=== PATIENT | male | born 1940 | race Caucasian/White ===

== ENCOUNTER → 2017-01-31 | Outpatient (CLI) | payer OTHER ==
[~2017-01-31] MED LIST: ASPI81TA28 PO; CARV6.252 PO; CYAN10004 PO; FLM4 PO; FLUO0.059; FRS/40 PO; LPT40 PO; NTRSLP4 SL; PLV75 PO; POTA10CA28 PO; TIMO0.5S35 OP
[2017-01-31 15:41] LABS: HEMATOCRIT 34.2 % (42-52); MEAN CELL VOLUME 95.8 fL (80-100); MEAN CORPUSCULAR HEMOGLOBIN 33.1 pg (25-34); MEAN CORPUSCULAR HGB CONC 34.5 g/dl (32-36); MEAN PLATELET VOLUME 9.7 fL (7.4-10.4); PLATELET COUNT 235 K/uL (130-400); RED BLOOD COUNT 3.57 M/uL (4.7-6.1); WHITE BLOOD COUNT 4.95 K/uL (4.8-10.8)
[2017-01-31 15:54] LABS: BLOOD UREA NITROGEN 25 mg/dl (7-18); BUN/CREATININE RATIO 21.2 (10-20); CALCIUM 8.9 mg/dl (8.5-10.1); CARBON DIOXIDE 24 mmol/L (21-32); CHLORIDE 108 mmol/L (98-107); GLUCOSE 115 mg/dl (70-99); POTASSIUM 3.6 mmol/L (3.5-5.1); SODIUM 143 mmol/L (136-145)
[2017-01-31 16:37] LABS: BASO ABS # 0.09 K/uL (0-0.2); BASOPHIL % 1.8 % (0-2); COMPLETE YES; LYMPH ABS # 2.19 K/uL (1.2-3.4); LYMPHOCYTE % 44.3 %; NEUTROPHILS % 27.4 %; VARIANT LYM ABS # 1.05 K/uL; VARIANT LYMPHOCYTE % 21.2 %
[2017-02-01 07:02] LABS: ESTIMATED AVERAGE GLUCOSE 143 mg/dl; HA1C FLAG Normal (Normal)
--- NOTE | 2017-02-06 13:00 | CODING QUERY MEDICAL NECESSITY ---
SUPPORTING DIAGNOSIS NEEDED Dr. Hernández, A supporting diagnosis is required for the test/procedure performed on this patient in order for us to be reimbursed by the patient's insurance. Please provide a supporting diagnosis for the following test/procedure listed below next to the test name along with your signature. *If there is no additional diagnosis for this patient that would support the following test/procedure please document that below next to the test/procedure. Test(s)/Procedure(s) that require a supporting diagnosis: * [id number] GLYCATED HEMOGLOBIN DIAGNOSIS: DATE OF SERVICE: 01/31/17 Provider Signature: Date: Thank you Gordon Beckford [facility] Information Management Once completed, please kindly fax back to [phone] For questions please call [phone]
== END | disposition home or self-care (01) ==
LOC: C.LAB1850 14:25
PROVIDERS: ATTEND Internal Medicine
DX: M79.89 Other specified soft tissue disorders (principal); D64.9 Anemia, unspecified; E53.8 Deficiency of other specified B group vitamins; E55.9 Vitamin D deficiency, unspecified; E88.9 Metabolic disorder, unspecified

== ENCOUNTER → 2017-06-16 | Outpatient (CLI) | payer OTHER ==
[2017-06-16 16:34] LABS: BASO % 0.4 %; BASO ABS # 0.02 K/uL (0-0.2); COMPLETE YES; EOS % 2.6 %; HEMATOCRIT 31.6 % (42-52); IG% 0.4 %; LYMPH % 48.7 %; LYMPH ABS # 2.21 K/uL (1.2-3.4); MEAN CELL VOLUME 97.5 fL (80-100); MEAN CORPUSCULAR HEMOGLOBIN 31.5 pg (25-34); MEAN CORPUSCULAR HGB CONC 32.3 g/dl (32-36); MEAN PLATELET VOLUME 9.3 fL (7.4-10.4); MONO % 7.7 %; NEUT % 40.2 %; PLATELET COUNT 296 K/uL (130-400); RED BLOOD COUNT 3.24 M/uL (4.7-6.1); WHITE BLOOD COUNT 4.54 K/uL (4.8-10.8)
[2017-06-16 16:54] LABS: ALT/SGPT 20 U/L (12-78); BLOOD UREA NITROGEN 15 mg/dl (7-18); BUN/CREATININE RATIO 16.1 (10-20); CALCIUM 8.5 mg/dl (8.5-10.1); CARBON DIOXIDE 25 mmol/L (21-32); CHLORIDE 109 mmol/L (98-107); CHOLESTEROL 174 mg/dl (0-200); CREATININE 0.94 mg/dl (0.60-1.40); GLUCOSE 142 mg/dl (70-99); SODIUM 139 mmol/L (136-145)
[2017-06-16 17:04] LABS: ALB/GLOB RATIO 0.7 (0.9-2); ALKALINE PHOSPHATASE 136 U/L (45-117); AST/SGOT 27 U/L (15-37); CHOLESTEROL/HDL RATIO 9.7; HDL CHOLESTEROL 18 mg/dl; LDL CHOLESTEROL CALCULATED 110 mg/dl; TOTAL IRON BINDING CAPACITY 305 mcg/dl (250-450); TRIGLYCERIDES 229 mg/dl (0-150); VERY LOW DENSITY LIPOPROT CALC 46 mg/dl
== END | disposition home or self-care (01) ==
LOC: C.LAB1850 15:34
PROVIDERS: ATTEND Internal Medicine
DX: R06.02 Shortness of breath (principal); E53.8 Deficiency of other specified B group vitamins; D64.9 Anemia, unspecified; I10 Essential (primary) hypertension; E55.9 Vitamin D deficiency, unspecified

== ENCOUNTER 2017-07-28 10:35 | Observation (INO) | payer OTHER ==
[2017-07-26 15:33] LABS: HEMATOCRIT 30.6 % (42-52); MEAN CORPUSCULAR HGB CONC 34.3 g/dl (32-36); MEAN PLATELET VOLUME 9.8 fL (7.4-10.4); PLATELET COUNT 193 K/uL (130-400); RED BLOOD COUNT 3.09 M/uL (4.7-6.1); WHITE BLOOD COUNT 4.38 K/uL (4.8-10.8)
[2017-07-26 15:45] LABS: INR 1.1 (0.9-1.1)
[2017-07-26 15:51] LABS: BLOOD UREA NITROGEN 24 mg/dl (7-18); BUN/CREATININE RATIO 27.1 (10-20); CALCIUM 8.3 mg/dl (8.5-10.1); CARBON DIOXIDE 25 mmol/L (21-32); CHLORIDE 107 mmol/L (98-107); CREATININE 0.87 mg/dl (0.60-1.40); GLUCOSE 97 mg/dl (70-99); POTASSIUM 3.8 mmol/L (3.5-5.1); SODIUM 137 mmol/L (136-145)
[~2017-07-28] VITALS: Ht 172.7 cm; Wt 95.5 kg
[2017-07-28] VITALS (9 sets, daily range): BP systolic 118–146; BP diastolic 61–82; PULSE 60–83; TEMP 36.5–36.8; O2SAT 95–98; Ht 172.7 cm; Wt 95.5 kg
[~2017-07-28 10:35] MED LIST changes: -LPT40 PO; -NTRSLP4 SL; -PLV75 PO
[2017-07-28] MEDS ORDERED: FENTANYL CITRATE INJ 50 MCG/1 ML 2 ML VIAL ONE (11:14)
[2017-07-28] MEDS ORDERED: MIDAZOLAM HCL 1 MG/ML 2ML VIAL ONE (11:14)
[2017-07-28] MEDS ORDERED: HEPARIN SOD (PORCINE) 1000 UNIT/ML 10 ML VIAL ONE ×2 (11:14→12:01)
[2017-07-28] MEDS ORDERED: NiCARDipine HCL INJ 2.5 MG/ML 10 ML AMP ONE (11:14)
[2017-07-28] MEDS ORDERED: NITROGLYCERIN/D5W 100MCG/ML 20ML SYR ONE (11:15)
[2017-07-28] MEDS ORDERED: CLOPIDOGREL BISULFATE 300 MG TAB PO ONE (12:29)
--- NOTE | 2017-07-28 12:44 | History & Physical Bridge Note ---
H&P Re-Evaluation Bridge Note: I have examined the patient, reviewed the History & Physical and in the interval since the performance of the History & Physical I have noted the following changes of clinical significance: No changes noted
--- NOTE | 2017-07-28 12:44 | Procedure Note ---
Pre-Mod Sedation Assessment General Date of Moderate Sedation: Jul 28, 2017. Vital Signs: Vital Signs Past 12 Hours Date Time Temp Pulse Resp B/P (MAP) Pulse Ox O2 Delivery O2 Flow Rate FiO2 07/28/17 12:28 72 16 134/77 (96) 93 Nasal Cannula 07/28/17 10:43 36.5 66 18 96 Room Air Review Cardiovascular: regular rate, rhythm, no edema Abdomen: normal bowel sounds, non tender Lungs: chest non-tender, lungs clear Airway Class: III Pre-Sedation Airway Assessment Oral Cavity: Dentures Able to Visualize Vocal Cords: No Short Thick Neck: No Hx of Sleep Apnea: No Smoking Status: Never Smoker Mallampati Classification: Class III ASA Classification: Class III Procedure Planning Contraindications-for Mod Sed: None Yes Notes The planned sedation has been discussed with the patient and consent obtained. I have identified the patient, determined the appropriateness of sedation and have assessed the patient immediately prior to the procedure. All medicine(s) and interventions are by my order.
[2017-07-28] MEDS ORDERED: ACETAMINOPHEN 325 MG TAB PO PRN (12:45)
[2017-07-28] MEDS ORDERED: ONDANSETRON INJ 2 MG/ML 2 ML VIAL IV PRN (12:45)
[2017-07-28] MEDS ORDERED: SODIUM CHLORIDE 0.9% 1000ML 1,000 ML IV SCH (12:45)
[2017-07-28] MEDS ORDERED: NITROGLYCERIN 0.4 MG SL PER TAB CHARGE SL PRN (12:45)
--- NOTE | 2017-07-28 12:45 | Procedure Note ---
Post-Mod Sedation Assessment General Date of Moderate Sedation Jul 28, 2017. Vital Signs: Vital Signs Past 12 Hours Date Time Temp Pulse Resp B/P (MAP) Pulse Ox O2 Delivery O2 Flow Rate FiO2 07/28/17 12:28 72 16 134/77 (96) 93 Nasal Cannula 07/28/17 10:43 36.5 66 18 96 Room Air Review - Discharge Criteria Vital Signs Stable: Yes Alert/Oriented/Conversant: Yes Returned to Baseline Mental St: Yes Nausea Absent/Minimal: Yes Pain/Discomfort/Absent/Minimal: Yes Normal/Baseline Respirations: Yes Active Bleeding?: No Pt Received D/C Instructions: N/A Prescriptions Given: None Specific Proced. D/C Criteria Distal Pulses Present (Cardiac: Yes Groin site assessed-Card Cath: N/A Voided Prior To Discharge: N/A Discharged Patients Adult Escort/Transportation: Yes
[2017-07-28] MEDS ORDERED: IV FLUIDS COMPLETED PRN (13:30)
[2017-07-28] MEDS: TIMOLOL MALEATE 0.5% OP SOLN 5 ML BTL OP SCH (21:04)
[2017-07-28] MEDS: CARVEDILOL 6.25 MG TAB PO SCH (21:04)
--- NOTE | 2017-07-28 21:45 | Cardiac Catheterization ---
Procedure Note Procedure Date Jul 28, 2017. Pre-Procedure Diagnosis Positive Stress Test AUC Score 7 Post-Procedure Diagnosis Severe CAD Procedure(s) Performed Coronary Angiography, Left Heart Cath, Drug Eluting Stent Cardiothoracic Icu Rn Refugio Counter Molder(s) Leighton Estimated Blood Loss 15 Medication(s) Fentanyl, Heparin, Nicardipine, Versed, Lidocaine 1% Summary of Findings Indication: Positive stress test/Angina Access: 6Fr Right radial artery Catheters: Lequire, multipurpose; JR4 guide Findings: LM - Very long, mild diffuse disease LAD - 50-60% ostial stenosis after small circumflex take-off, mild mid and distal segment disease Circumflex - Small vessel with abnormal take-off after long left main; 95% hazy stenosis in proximal segment; OM1 like branch subtotally occluded. TIMI2 flow in small distal vessel RCA - Large vessel, dominant, 80% long proximal to mid stenosis; luminal irregularities in distal segment, PDA and large PLB. LVEDP - 11 -- PCI -- Antithrombotic therapy: Heparin, Clopidogrel Procedure: RCA cannulated with JR4 guide Prowater wire passed across lesion into distal vessel Proximal to mid RCA lesion predilated with 3.0 compliant balloon Dilated lesion stented with 4.0 x 28 Xience STEFFANIE Stent post-dilated with 5.0 noncompliant balloon IC vasodilators administered for spasm Post procedure IRA 3 flow, stent well expanded with minimal residual stenosis and no apparent cardiac complications. Arterial Closure: TR Band Summary: 1. Severe multi-vessel coronary artery disease - 80% proximal-mid RCA stenosis - 95% proximal small circumflex - 50-60% proximal LAD 2. Normal intracardiac filling pressure 3. Successful PCI of proximal to mid RCA with 4.0 x 28 Xience STEFFANIE (post-dilated to 5.0). Recommendations: To PCU for continued monitoring Loaded with Clopidogrel 600 mg in label coder Continue dual-antiplatelet therapy with ASA/Clopidogrel for 6 months Continue statin, ASCVD risk factor modification Consult cardiac Rehab Circumflex is small vessel, LAD relatively small to moderate sized - plan to medically manage for now. If recurrent symptoms could consier attempted PCI of circumflex +/- FFR of LAD Hemodynamics Rest Ao: -- Final Ao: -- LV: -- Recommendations PCI without planned CABG Specimens None Radiation Exposure (mGy) -- Contrast (mls) -- Fluids (cc crystalloids) -- Drains None Anesthesia Moderate Procedural Complication(s) None Disposition PCU ACC Data Cardiac Status Clinical evaluation leading to the procedure CAD Presntation: Positive Stress Test Anginal Classification: CCS III Heart Failure: No, NYHA Class: CCS I Cardiogenic Shock w/in 24Hrs: No Cardiac Arrest w/in 24Hrs: No Imaging studies past 6 months: Yes Stress studies past 6 months: Yes Stress Echocardiogram: Yes - Positive, Risk/Extent of Ischemia (High) Closure Device Closure Device: Radial Band Recommendations: PCI without planned CABG PCI Indication: + Stress Test Lesion Segment Name: Proximal - mid RCA Culprit Artery: Yes Stenosis Prior to Rx (%): 80% Chronic Total Occlusion: No IVUS: No FFR: No Pre-Procedure IRA Flow: 3 Previously Treated Lesion: No Lesion Complexity: Non-High/Non-C Lesion Length (mm): 25 Thrombus Present: No Bifurcation Lesion: No Guidewire Across Lesion: Yes Guidewire: Stenosis Post-Procedure (%): 0 Post-Procedure IRA Flow: 3 Device(s) Deployed: Yes Intraprocedure Events Significant Dissection: No Perforation: No
[2017-07-28] MEDS ORDERED: NTRSLP4 SL (22:09)
[2017-07-28] MEDS ORDERED: PLV75 PO (22:09)
[2017-07-28] MEDS ORDERED: LPT40 PO (22:09)
--- NOTE | 2017-07-28 22:15 | Discharge Instructions ---
Discharge Instructions Procedure Procedure Date: Jul 28, 2017. Reason for Visit: CAD. Discharge Discharge Date: Jul 28, 2017. Discharge Diagnosis: Coronary artery disease Last Recorded Wt (Kilograms): 97.700 Anesthesia Post Anesthesia Instructions: If you have had General Anesthesia or IV Sedation: * Do not drive today. * Resume driving when surgeon permits. * Do not make important decisions or sign legal documents today. * Call surgeon for: 1. Temperature elevations greater than 101 degrees F. 2. Uncontrollable pain. 3. Excessive bleeding. 4. Persistent nausea and vomiting. 5. Medication intolerance (nausea, vomiting or rash). * For nausea and vomiting use only clear liquids such as: tea, soda, bouillon until nausea subsides, then gradually increase diet as tolerated. * If you have any concerns or questions, call your surgeon's office. If physician is unavailable and it is an emergency, call 911 or go to the nearest emergency room. Instructions Activity Recommendations: limitations as noted below Recommended Home Diet: low sodium Allergies: Coded Allergies: NO KNOWN DRUG ALLERGIES (Verified Allergy, Unknown, none, 05/29/15) Follow Up Additional Instructions: ACTIVITY RECOMMENDATIONS: Excess manipulation of the wrist should be avoided for the next 24-48 hours. * No lifting over 2 pounds (approximately a 1/2 gallon of milk) with the utilized arm for 24 hours. * No strenuous activity such as bowling or tennis for 3 days. * Keep the site of the procedure covered with a bandage for 24 hours. *You may shower the day after the procedure. Do not take a tub bath or submerge the puncture site in water for the next 3 days. *Do not operate any motorized equipment for 3 days. SPECIAL CARE INSTRUCTIONS: The site may be slightly bruised and sore following your procedure. Should any of the following occur, contact the Dr. who performed your procedure. 1. Redness/inflammation, swelling, chills, or fever, or colored drainage at procedure site within 3-7 days after your procedure. 2. Coldness, discoloration, ongoing numbness, severe pain, or swelling. Expect mild tingling of hand and tenderness at the puncture site for up to three days. If this persists beyond three days, or other symptoms develop, notify the Dr. who performed your procedure. BLEEDING: If the procedure site on your wrist begins to bleed, do not panic 1. Place 1 or 2 fingers firmly just slightly above the insertion site to stop the bleeding. You may be able to feel your pulse as you hold pressure. 2. Lift your finger after 5 minutes to see if the bleeding has stopped. 3. Once the bleeding has stopped, gently wipe the wrist area clean with a bandage. * If the bleeding from your wrist does not stop after 10 minutes, or if there is a large amount of bleeding or spurting, call 911 (do not drive yourself to the hospital). SKIN IRRITATION: * You may experience some redness and/or swelling in the area where radiation was administered. If any skin irritation occurs, please contact your family physician. FOLLOW UP VISIT: Keep any scheduled doctor appointments. Follow-up with: Cardiology clinic with Linden Morales in 3 weeks Piper Currie Recommendations: Call your doctor if: * Temperature above 101 degrees * Pain not relieved by pain medicine ordered * There is increased drainage or redness from any incision * You have any unanswered questions or concerns. Your Doctors Instructions noted above were prepared by provider Rohith Huff. Patient Signature Section: Patient Instructions Signature Page Ty Milton Patient (or Guardian) Signature/Date: I have read and understand the instructions given to me by my caregivers. Caregiver/RN/Doctor Signature/Date: The above-named patient and/or guardian has received patient instructions on this date. + Original Patient Signature Page (only) stays with chart. Please make copy for patient.
--- NOTE | 2017-07-28 22:36 | Discharge Summary ---
Discharge Summary Date of Service Jul 28, 2017. Discharge Summary Admission Date: Jul 28, 2017 at 12:43 Discharge Date: Jul 29, 2017 Discharge Disposition: Home Principal Diagnosis: Coronary artery disease Procedures: 1. Coronary angiography/left heart catheterization. 2. PCI proximal to mid RCA with 4.0 x 28 Xience STEFFANIE (postdilated to 5.0) Medication Reconciliation New Medications: Atorvastatin (Atorvastatin Calcium) 40 Mg Tab 1 TABS PO DAILY for 30 Days, #30 TABS 6 Refills Clopidogrel Bisulfate (Clopidogrel) 75 Mg Tab 75 MG PO QAM for 30 Days, #30 TAB 6 Refills Nitroglycerin (Nitrostat) 0.4 Mg/1 Tab Subl 0.4 MG SL UD PRN for Chest Pain for 30 Days, #30 TABS 6 Refills Continued Medications: Aspirin (Aspirin Ec) 81 Mg Tab 81 MG PO DAILY Carvedilol (Coreg) 6.25 Mg Tab 1 TAB PO BID for 90 Days, #180 TAB 1 Refill Cyanocobalamin (Vitamin B-12 1000 Mcg) 1,000 Mcg Tab 1000 MCG PO DAILY, TAB Fluocinonide (Fluocinonide) 0.05 % Gel BID Furosemide (Lasix) 40 Mg Tab 80 MG PO QAM, TAB Potassium Chloride (Micro-K Ext Rel) 10 Meq Capcr 10 MEQ PO BID, CAP Tamsulosin HCl (Tamsulosin HCl) 0.4 Mg Cap 1 CAP PO DAILY Timolol Maleate (Ophth) (Timoptic) 0.5 % Allyson 1 DROPS OP BID for 60 Days, #10 ML 3 Refills Discharge Exam Right radial artery access site with no ecchymosis, hematoma. Distal pulse and sensation intact. General: comfortable, no acute distress HEENT: sclera anicteric, mucous membranes moist Neck: No lymphadenopathy, no thyromegaly Lungs: Clear to auscultation bilaterally Cardiac: Regular rate and rhythm, no murmurs, rubs or gallops. No Jugular venous distension Vascular: Normal carotid upstrokes without bruits, PT/DP pulses bilaterally. Abd: Soft, non-tender, non-distended, +bowel sounds, no hepatosplenomegaly Ext: warm, well perfused, no edema Skin: no rashes Neuro: Cranial nerves grossly intact, remainder of exam non-focal Psych: Alert and oriented x3, appropriate Hospital Course Mr. Milton is a 76-year-old male with a history of longstanding Hypertension, dyslipidemia and more recent progressive exertional dyspnea. He underwent outpatient stress test which revealed new resting LV dysfunction (EF 40%) with positive exercise induced inferior ST depressions and wall motion abnormality. Decision made to proceed with cardiac catheterization. Cardiac catheterization via right radial artery revealed an 80% diffuse stenosis in his proximal to mid RCA. In addition had a 50-60% stenosis in his proximal LAD and a 95% stenosis in a small circumflex vs diagonal supplying circumflex territory. No anomalous or occluded circumflex noted. As LAD/ circumflex were small vessels and RCA fit with stress test findings proceeded with PCI of RCA. 4.0 x 28 Xience STEFFANIE placed to proximal to mid RCA, post- dilated with a 5.0 balloon. Patient tolerated procedure without difficulties. He was loaded with clopidogrel and is to continue on DAPT for at least 6 months. He was admitted to telemetry for observation overnight. He had no chest pain. No arrhythmias on monitoring. On hospital day 2 discharged to home. Total Time Spent: Less than 30 minutes This includes examination of the patient, discharge planning, medication reconciliation, and communication with other providers. Discharge Instructions Please refer to the electronic Patient Visit Report (Discharge Instructions) for additional information. Follow-Up [facility], Cardiology [address] Hernández as Scheduled
[2017-07-29] VITALS: BP 129/70; PULSE 76; TEMP 36.8; O2SAT 96
[2017-07-29 04:00] VITALS: BP 138/69; PULSE 63; TEMP 36.6; O2SAT 96
[2017-07-29 06:47] LABS: MEAN CELL VOLUME 98.6 fL (80-100); MEAN CORPUSCULAR HGB CONC 32.4 g/dl (32-36); MEAN PLATELET VOLUME 9.2 fL (7.4-10.4); PLATELET COUNT 201 K/uL (130-400); RED BLOOD COUNT 2.94 M/uL (4.7-6.1); WHITE BLOOD COUNT 4.35 K/uL (4.8-10.8)
[2017-07-29 07:18] LABS: BUN/CREATININE RATIO 23.1 (10-20); CALCIUM 8.1 mg/dl (8.5-10.1); CREATININE 0.88 mg/dl (0.60-1.40); POTASSIUM 3.8 mmol/L (3.5-5.1)
[2017-07-29 07:25] LABS: COMPLETE YES; EOSINOPHIL % 2.6 %; LYMPH ABS # 1.14 K/uL (1.2-3.4); LYMPHOCYTE % 26.1 %; NEUTROPHILS % 44.4 %; VARIANT LYM ABS # 1.06 K/uL; VARIANT LYMPHOCYTE % 24.3 %
[2017-07-29] MEDS: TIMOLOL MALEATE 0.5% OP SOLN 5 ML BTL OP SCH (07:38)
[2017-07-29] MEDS: CARVEDILOL 6.25 MG TAB PO SCH (07:38)
[2017-07-29 08:00] VITALS: BP 140/69; PULSE 77; TEMP 36.8; O2SAT 94
[2017-07-29] MEDS ORDERED: ASPIRIN 81 MG ECTAB PO SCH (09:00)
[2017-07-29] MEDS ORDERED: CLOPIDOGREL BISULFATE 75 MG TAB PO SCH (09:00)
[2017-07-29] MEDS ORDERED: ATORVASTATIN 40 MG TAB PO SCH (09:00)
[2017-07-29] MEDS ORDERED: TAMSULOSIN HCL 0.4 MG CAP PO SCH (09:00)
[2017-07-29] MEDS ORDERED: CYANOCOBALAMIN 500 MCG TAB (VIT B-12) PO SCH (09:00)
[2017-07-29 11:00] VITALS: BP 140/69; PULSE 77; TEMP 36.8; O2SAT 94
--- NOTE | 2017-07-29 13:23 | CARDIOLOGY PROGRESS NOTE ---
DATE: 07/29/2017 SUBJECTIVE: Mr. Milton is resting comfortably in bed without complaints of chest pain or dyspnea. He has been ambulatory around his room without difficulty. He is anxious for hospital discharge. OBJECTIVE: VITAL SIGNS: Blood pressure 140/70 with an regular pulse of 77. Respiratory rate is 24. The patient is afebrile at 36.8 degrees Celsius with saturation 94% on room air. NECK: Supple with full carotid upstrokes. No carotid bruits. Jugular venous pressure is flat at 90 degrees. There is no thyromegaly. CARDIOVASCULAR: Reveals a regular rhythm with normal S1 and S2. Heart sounds are distant. No obvious murmurs. LUNGS: Clear without rales, rhonchi, or wheeze. ABDOMEN: Soft, nontender without bruits. EXTREMITIES: Reveal intact radial artery pulses bilaterally. Right radial artery dressing is intact. No peripheral edema. DATA: CBC notes hemoglobin of 9.4, hematocrit 29.0, white count 4.3 and platelet count 201,000. Electrolytes note a sodium of 137, potassium 3.8, chloride 107, bicarbonate 25, BUN 20, creatinine 0.88, glucose 100. personnel monitor is benign. IMPRESSION AND PLAN: 1. Coronary artery disease. The patient is status post drug-eluting stent in the proximal right coronary artery. He tolerated the procedure well. He is stable and ready for hospital discharge.
== END 2017-07-29 11:55 | disposition home or self-care (01) ==
LOC: C.CATH 10:35 → C.MSICU 12:43 → ENRESERV 12:52
PROVIDERS: ADMIT Internal Medicine Cardiovascular Disease; ATTEND Internal Medicine Cardiovascular Disease
DX: I25.10 Atherosclerotic heart disease of native coronary artery without angina pectoris (principal); I10 Essential (primary) hypertension; I77.810 Thoracic aortic ectasia; E78.4 Other hyperlipidemia; E66.9 Obesity, unspecified; I07.1 Rheumatic tricuspid insufficiency; M19.90 Unspecified osteoarthritis, unspecified site; I87.2 Venous insufficiency (chronic) (peripheral); H40.9 Unspecified glaucoma; N40.0 Benign prostatic hyperplasia without lower urinary tract symptoms; E55.9 Vitamin D deficiency, unspecified; E53.8 Deficiency of other specified B group vitamins; Z79.82 Long term (current) use of aspirin; Z82.49 Family history of ischemic heart disease and other diseases of the circulatory system

== ENCOUNTER → 2017-09-25 | Outpatient (CLI) | payer OTHER ==
[~2017-09-25] MED LIST changes: +LPT40 PO; +NTRSLP4 SL; +PLV75 PO
--- NOTE | 2017-09-25 14:21 | DIAGNOSTIC IMAGING REPORT ---
ULTRASOUND KIDNEYS AND BLADDER CLINICAL HISTORY: Benign prostatic hyperplasia with urinary obstruction. COMPARISON STUDY: No priors. TECHNIQUE: Real-time, grayscale, and color flow sonography of the kidneys and bladder is performed. Images are reviewed in the transverse and longitudinal planes. FINDINGS: Kidneys: The kidneys are normal in size and echotexture. The right kidney measures 11.5 x 5.5 x 5.5 cm and the left kidney measures 12.0 x 5.9 x 5.8 cm. There is no hydronephrosis. No shadowing renal calculi are identified. There is no sonographic evidence of contour deforming renal mass lesion. No perinephric fluid is identified. Bladder: The prostate gland is enlarged and heterogeneous, measuring 5.0 cm in transverse diameter. There is median lobe hypertrophy. The bladder wall appears mildly thickened and trabeculated suggesting chronic outlet obstruction. Bilateral ureteral jets were seen. IMPRESSION: 1. The kidneys are normal in size and without hydronephrosis. 2. Prostatomegaly with evidence of chronic bladder outlet obstruction. Electronically signed by: Scout Barajas M.D. 09/25/2017 2:20 PM Dictated Date/Time: 09/25/2017 2:19 PM
== END | disposition home or self-care (01) ==
LOC: C.ULTR 13:32
PROVIDERS: ATTEND Urology
DX: N40.1 Benign prostatic hyperplasia with lower urinary tract symptoms (principal)

== ENCOUNTER → 2017-11-16 | Outpatient (CLI) | payer OTHER ==
[2017-11-16 13:20] LABS: HEMATOCRIT 31.7 % (42-52); HEMOGLOBIN 10.8 g/dL (14.0-18.0); MEAN CELL VOLUME 96.6 fL (80-100); MEAN CORPUSCULAR HEMOGLOBIN 32.9 pg (25-34); MEAN CORPUSCULAR HGB CONC 34.1 g/dl (32-36); MEAN PLATELET VOLUME 9.9 fL (7.4-10.4); PLATELET COUNT 225 K/uL (130-400); RED CELL DISTRIBUTION WIDTH CV 15.8 % (11.5-14.5); RED CELL DISTRIBUTION WIDTH SD 55.2 fL (36.4-46.3); WHITE BLOOD COUNT 3.81 K/uL (4.8-10.8)
[2017-11-16 13:26] LABS: HEMOGLOBIN A1C 6.1 % (4.5-5.6)
[2017-11-16 13:45] LABS: ALBUMIN 3.4 gm/dl (3.4-5.0); ALT/SGPT 30 U/L (12-78); BLOOD UREA NITROGEN 22 mg/dl (7-18); CALCIUM 8.4 mg/dl (8.5-10.1); CARBON DIOXIDE 26 mmol/L (21-32); GLUCOSE 122 mg/dl (70-99); POTASSIUM 4.1 mmol/L (3.5-5.1); SODIUM 138 mmol/L (136-145)
[2017-11-16 13:49] LABS: ALKALINE PHOSPHATASE 117 U/L (45-117); AST/SGOT 24 U/L (15-37); TOTAL PROTEIN 7.1 gm/dl (6.4-8.2); TRANSFERRIN 245 mg/dl (200-360)
[2017-11-16 14:20] LABS: BASO % 0.5 %; BASO ABS # 0.02 K/uL (0-0.2); EOS % 3.7 %; EOS ABS # 0.14 K/uL (0-0.5); IG# 0.01 K/uL (0.00-0.02); LYMPH % 50.4 %; LYMPH ABS # 1.92 K/uL (1.2-3.4); MONO % 8.7 %; MONO ABS # 0.33 K/uL (0.11-0.59); NEUT % 36.4 %; NEUT ABS # 1.39 K/uL (1.4-6.5)
== END | disposition home or self-care (01) ==
LOC: C.LAB1850 11:12
PROVIDERS: ATTEND Internal Medicine
DX: D64.9 Anemia, unspecified (principal); I25.10 Atherosclerotic heart disease of native coronary artery without angina pectoris; E88.9 Metabolic disorder, unspecified; N40.1 Benign prostatic hyperplasia with lower urinary tract symptoms

== ENCOUNTER → 2017-11-27 | Outpatient (CLI) | payer OTHER ==
[~2017-11-27] MED LIST changes: -TIMO0.5S35 OP; +TIMO0.5S4 OP
[2017-11-27 15:42] LABS: FECAL OCCULT BLOOD #1 NEGATIVE (NEGATIVE); FECAL OCCULT BLOOD #2 NEGATIVE (NEGATIVE); FECAL OCCULT BLOOD #3 POSITIVE (NEGATIVE)
== END | disposition home or self-care (01) ==
LOC: C.LABSPEC 14:45
PROVIDERS: ATTEND Internal Medicine
DX: D64.9 Anemia, unspecified (principal)

== ENCOUNTER 2021-12-13 07:35 | Inpatient (IN) ==
--- NOTE | 2021-12-08 15:29 | Anesthesiology Consultation ---
Date of Service December 08, 2021 Assessment & Plan (1) Encounter for pre-operative examination: - check BSG am DOS. - Pt speaks limited Slovenian, son will be present DOS to assist. - urology phone note 12/07/2021: "...Spoke in length to patient's son today. 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 Was able to undergo resection of this area. Did have some invasion onto the meatal structure...Due to the nature and positioning and area involved as well as the invasive nature as well as the concerns about long-term healing as well as curative management of the penile cancer a significant discussion was had about partial penectomy...Patient would likely have adequate tissue to allow a penile stump that would be functional for voiding. Did discuss possibility of invasive carcinoma with possible spread to the lymph as well as other issues that may develop. Did discuss need for further imaging including imaging of the abdomen and pelvis for assessment of lymph nodes...Likely patient will have considerable difficulty healing the biopsied area due to the invasive cancer. At this point would recommend proceeding with intervention sooner rather than later. Did review different options such as chemotherapy and radiation options. Discussed limited options for cure with out complete resection of the tumor. We will plan to set patient up with imaging. We will have scheduling look at next available time hopefully within the next 1 to 2 weeks we will be able to move forward with intervention. Patient and family are agreeable at this point. They are going to discuss further however are feeling that this is the course they will likely take..." - s/p Excisional biopsy of Penile Mass and Penile Meatus, Hagan catheter placement 12/02/2021: EUGENE. -urology office visit 12/01/2021 [place]: "...increasing issues related to a penile lesion with severe balanitis. This is exacerbated considerably. Has now formed into a masslike area that had formed ulceration and more significant irritation over the last few months...patient now has a fungated ulcerated and very tender mass of the glans involving the majority of the left glans including the meatus...Risks and benefits discussed at length for procedure. These include bleeding, infection, injury to surrounding tissues or organs, and risks associated with anesthesia. Patient states understanding and agrees to proceed. Will sign consent and schedule. Discussed patient's chronic medical issues and concerns and increased risk associated with anesthesia and surgery with these issues...Significant concern for possible development of penile cancer versus other penile tumor...Patient's disease is considered a high risk with significant risk of morbidity and mortality if allowed to continue untreated. Different alternatives had been discussed. Delay of intervention at this time would have significant risk to life and limb. Specifically there is a chance of progression to severe disease or loss of organ/renal function, progression to infection or other advanced disease, and/or possible . The procedure is deemed medically necessary and life sustaining...Plan for excision of penile mass, possible circumcision, possible partial penectomy..." -wellness visit 10/07/2021 [place]: "...B/l lower extremity edemamostly in feet by the end of the day, HTN- HCTZ 12,5 mg po q D - As need only...Normal kidney and liver function - temporary on Lasix/potassium supplement currently does not use...PCIin LAD- July 2012...(discussion with Cardiology patient had drug eluting stent in RCA and residual stenosis in the proximal left circumflex and mid LAD, to remain on aspirin for the rest of his life, in generally Plavix can be stopped 1 year after having drug eluting stent but because of his residual blockages it was recommended today on Plavix indefinitely as well- reported currently taking only aspirin- highly recommended to restart cholesterol medication beta-rosy given blood pressure upper limits normal and CAD- currently is not taking any medications because of personal preference- asymptomatic except lower extremity swelling...Vitamin B12 deficiency/anemia- does not take B12 supplement regula rly, whenever coming to the office B12 injections given...pre diabetic/metabolic disordercurrently is not taking metformin...A1c 6.8 February 03, 2020 continue dietary modification, declined blood test for follow-up July 28, 2020... anemiahemoglobin down to 10 in May of 2017...Hematology recommended GI evaluation with colonoscopy/EGD patient declined reviewed during the visit January 09, 2018...patient declined blood test during visit September 2021..." - COVID screening: Per harnessmaker on 12/08/2021: Travel screen negative, no known COVID-19 positive contacts or current COVID-19 related symptoms in past 2 weeks. Surgeon arranging preop COVID testing, scheduled 12/09/2021. Awaiting results. Chart Review Chart Review: Acceptable Risk for Surgery and Patient NOT seen in Pre Admission Testing History Surgery Operation Date: 12/13/21 09:20 Proposed Procedures p Partial Penectomy - Grant Mendoza, DO Height/Weight Height: 5 ft 6 in Weight: 99.79 kg Allergies Allergy/AdvReac Type Severity Reaction Status Date / Time No Known Drug Allergies Allergy Unknown none Verified 12/08/21 13:01 Medications Home Medications Medication Instructions Recorded Confirmed Last Taken timolol maleate 0.25 % eye drops 1 drp OP .INSTILL 1 DROP IN IFTIKHAR ml 02/01/19 12/08/21 12/02/21 07:30 clotrimazole-betamethasone 1 1 applic TOPICAL .qhs #45 g 09/28/21 12/08/21 12/01/21 %-0.05 % topical cream nystatin 100,000 unit/gram topical 1 applic TOPICAL DAILY #30 g 11/16/21 12/08/21 12/01/21 cream triamcinolone acetonide 0.1 % 1 applic TOPICAL DAILY #30 g 11/16/21 12/08/21 12/01/21 topical cream aspirin 81 mg tablet,delayed 81 mg PO QAM 12/01/21 12/08/21 11/30/21 release (Adult Low Dose Aspirin) doxycycline hyclate 100 mg capsule 100 mg PO BID #14 cap 12/02/21 12/08/21 Unknown finasteride 5 mg tablet (Proscar) 5 mg PO DAILY 12/02/21 12/08/21 11/30/21 oxybutynin chloride 5 mg tablet 5 mg PO Q8H PRN #20 tab 12/02/21 12/08/21 Unknown oxycodone-acetaminophen 7.5 mg-325 1 tab PO Q8H PRN #7 tab 12/02/21 12/08/21 Unknown mg tablet (Percocet) phenazopyridine 200 mg tablet 200 mg PO Q8H PRN #10 tab 12/02/21 12/08/21 Unknown (Pyridium) tamsulosin 0.4 mg capsule 0.4 mg PO HS #30 cap 12/02/21 12/08/21 Unknown tamsulosin 0.4 mg capsule (Flomax) 0.4 mg PO DAILY 12/02/21 12/08/21 11/30/21 Past Medical History Medical History (Updated 12/08/21 @ 15:24 by Ese Rojas PA-C) Anemia H&H 11/2021; chronic since 2016, pt declined GI evaluation or additional monitoring labs per PCP records Ascending aorta dilation mild on 2017 stress echo Benign prostatic hyperplasia with urinary obstruction Cardiomyopathy type not specified in records, known CAD s/p STEFFANIE to RCA in 2016, EF 40% on stress echo in 2017 Coronary artery disease s/p STEFFANIE to RCA 2016; residual 95% stenosis proximal small Cx and 50-60% stenosis proximal LAD-per cath report: "...plan to medically manage for now" Glaucoma Hearing impairment Hypertension Left ventricular diastolic dysfunction, NYHA class 1 EF 40%, global hypokinesis per 2017 stress echo Leukopenia WBC below 4 since 2018 Localized swelling of both lower legs on HCTZ prn by PCP, last echo 2016 Mitral regurgitation mild per 2017 echo Penile cancer Prediabetes last A1c 6.8% 2019, pt declined additional testing per PCP records Status post insertion of drug-eluting stent into left anterior descending (LAD) artery 2011 per PCP records Tricuspid regurgitation mild per 2017 stress echo Venous insufficiency Past Family History Family History Mother Coronary heart disease Other No family history of adverse response to anesthesia Past Surgical History Surgical History History of cardiac cath 07/26/2017: Left main: very long, mild diffuse disease LAD: 50-60% stenosis Cx: 95% hazy stenosis in proximal segment RCA: 80% long proximal to mid stenosis Summary: Severe multi-vessel CAD 80% proximal-mid RCA 95% proximal small Cx 50-60% proximal LAD Successful PCI of proximal to mid RCA with STEFFANIE Cx is a small vessel, LAD relatively small to moderate sized-plan to medically manage for now History of mastoidectomy Left Hx of cataract surgery Social History Smoking Status: Never smoker Do You Dip or Chew Tobacco: No Hx Alcohol Use: No Hx Substance Use: No substance use type: does not use Lab Results Anesthesia Preop Results Results Anesthesia Widget: WBC 3.54 K/uL (4.8-10.8) L 12/01/21 Hgb 12.5 g/dL (14.0-18.0) L 12/01/21 Hct 36.4 % (42-52) L 12/01/21 Plt 161 K/uL (130-400) 12/01/21 Na 138 mmol/L (136-145) 12/01/21 K 4.1 mmol/L (3.5-5.1) 12/01/21 Cl 107 mmol/L (98-107) 12/01/21 CO2 24 mmol/L (21-32) 12/01/21 BUN 20 mg/dl (6-23) 12/01/21 Creat 0.86 mg/dl (0.6-1.4) 12/01/21 Glucose Level 166 mg/dl (70-99(Fasting)) H 12/01/21 Testing Chest X-Ray Date: 12/01/21 FINDINGS: The cardiac silhouette is enlarged. Atherosclerosis of the thoracic aorta. No pneumothorax, pleural effusion, airspace consolidation or overt pulmonary edema. Hyperinflation with diaphragmatic flattening. Degenerative changes of the shoulders and spine. IMPRESSION: Cardiomegaly without acute process. Stress Test Date: 07/26/17 Exercise METS 4.6 MPHR 100% Negative stress echo and ECG EF 40% Global hypokinesis Mild cLVH Mildly dilated ascending aorta Mildly dilated left atrium Mild mitral regurgitation Trace aortic valve insufficiency Mild tricuspid regurgitation Cardiac Catheterization Date: 07/28/17 Left main: very long, mild diffuse disease LAD: 50-60% stenosis Cx: 95% hazy stenosis in proximal segment RCA: 80% long proximal to mid stenosis Summary: Severe multi-vessel CAD 80% proximal-mid RCA 95% proximal small Cx 50-60% proximal LAD Successful PCI of proximal to mid RCA with STEFFANIE Cx is a small vessel, LAD relatively small to moderate sized-plan to medically manage for now Other Testing Abdomen/pelvis CT 12/08/2021 1. No renal or ureteral stones. No hydronephrosis. 2. No suspicious filling defects seen within the opacified bilateral renal collecting systems, ureters, or bladder. 3. There is a Hagan catheter within the bladder. 4. Mild bladder wall thickening with adjacent fat stranding. This could be chronic or represent a mild cystitis. Recommend correlation with urinalysis. 5. The prostate gland is mildly enlarged. 6. Mild cirrhosis. 7. Cholelithiasis. 8. A 3 mm indeterminate pulmonary nodule within the right lower lobe. 9. Bilateral femoral head avascular necrosis. 10. Additional findings as described above. (detailed report available under imaging)
[~2021-12-13 07:35] MED LIST changes: -ASPI81TA28 PO; -CARV6.252 PO; -CYAN10004 PO; -FLM4 PO; -FLUO0.059; -FRS/40 PO; -LPT40 PO; +LR 15ML/HR IV SCH; -NTRSLP4 SL; -PLV75 PO; -POTA10CA28 PO; -TIMO0.5S4 OP; +ceFAZolin 2000MG 2,000 MG/15 ML SYR IV SCH
--- NOTE | 2021-12-13 08:24 | History & Physical Report ---
Date of Service December 13, 2021 Assessment & Plan (1) Penile cancer: Plan: Underwent biopsy of mass of glans/meatus. Came back as invasive squamous cell carcinoma. Amharic is not patient's primary language. Family is present and have discussed with all questions answered. Risks and benefits discussed at length for procedure. These include bleeding, infection, injury to surrounding tissues or organs, and risks associated with anesthesia. Patient states understanding and agrees to proceed. Will sign consent and proceed. Plan for partial penectomy History of Present Illness Primary Care Provider: Mandi Davis MD Patient here for procedure. No changes in medical issues. No major changes in urinary issues. Continued issues and concerns. No change in pain or discomfort. No severe fevers or chills. No chest pain or shortness of breath. Risks and benefits discussed at length for procedure. These include bleeding, infection, injury to surrounding tissues or organs, and risks associated with anesthesia. Patient and/or family states understanding and agrees to proceed. Consent and supporting information completed. Allergies Allergy/AdvReac Type Severity Reaction Status Date / Time No Known Drug Allergies Allergy Unknown none Verified 12/13/21 08:01 Home Medications Medication Instructions Recorded Confirmed Type timolol maleate 0.25 % eye drops 1 drp OP .INSTILL 1 DROP IN IFTIKHAR ml 02/01/19 12/13/21 History clotrimazole-betamethasone 1 1 applic TOPICAL .qhs #45 g 09/28/21 12/13/21 Rx %-0.05 % topical cream nystatin 100,000 unit/gram topical 1 applic TOPICAL DAILY #30 g 11/16/21 12/13/21 Rx cream triamcinolone acetonide 0.1 % 1 applic TOPICAL DAILY #30 g 11/16/21 12/13/21 Rx topical cream aspirin 81 mg tablet,delayed 81 mg PO QAM 12/01/21 12/13/21 History release (Adult Low Dose Aspirin) finasteride 5 mg tablet (Proscar) 5 mg PO DAILY 12/02/21 12/13/21 History oxybutynin chloride 5 mg tablet 5 mg PO Q8H PRN #20 tab 12/02/21 12/13/21 Rx oxycodone-acetaminophen 7.5 mg-325 1 tab PO Q8H PRN #7 tab 12/02/21 12/13/21 Rx mg tablet (Percocet) phenazopyridine 200 mg tablet 200 mg PO Q8H PRN #10 tab 12/02/21 12/13/21 Rx (Pyridium) tamsulosin 0.4 mg capsule 0.4 mg PO HS #30 cap 12/02/21 12/13/21 Rx doxycycline hyclate 100 mg capsule 100 mg PO BID 12/13/21 12/13/21 History (Vibramycin) Past Med/Surg History Medical History Anemia H&H 11/2021; chronic since 2016, pt declined GI evaluation or additional monitoring labs per PCP records Ascending aorta dilation mild on 2017 stress echo Benign prostatic hyperplasia with urinary obstruction Cardiomyopathy type not specified in records, known CAD s/p STEFFANIE to RCA in 2016, EF 40% on stress echo in 2016 Coronary artery disease s/p STEFFANIE to RCA 2016; residual 95% stenosis proximal small Cx and 50-60% stenosis proximal LAD-per cath report: "...plan to medically manage for now" Glaucoma Hearing impairment Hypertension Left ventricular diastolic dysfunction, NYHA class 1 EF 40%, global hypokinesis per 2017 stress echo Leukopenia WBC below 4 since 2018 Localized swelling of both lower legs on HCTZ prn by PCP, last echo 2017 Mitral regurgitation mild per 2017 echo Penile cancer Prediabetes last A1c 6.8% 2019, pt declined additional testing per PCP records Status post insertion of drug-eluting stent into left anterior descending (LAD) artery 2011 per PCP records Tricuspid regurgitation mild per 2017 stress echo Venous insufficiency Surgical History History of cardiac cath 07/26/2017: Left main: very long, mild diffuse disease LAD: 50-60% stenosis Cx: 95% hazy stenosis in proximal segment RCA: 80% long proximal to mid stenosis Summary: Severe multi-vessel CAD 80% proximal-mid RCA 95% proximal small Cx 50-60% proximal LAD Successful PCI of proximal to mid RCA with STEFFANIE Cx is a small vessel, LAD relatively small to moderate sized-plan to medically manage for now History of mastoidectomy Left Hx of cataract surgery Family History Mother Coronary heart disease Other No family history of adverse response to anesthesia Social History Smoking Status: Never smoker Second Hand Exposure: No; Do You Dip or Chew Tobacco: No; Tobacco Cessation Education Requested by Patient: No Hx Alcohol Use: No Hx Substance Use: No Preferred Language: Bolivian Communication Ability: Effective Communication Tools: IPad and Other Premium Card Cancellation Clerk Required: Yes Beliefs That Will Affect Care: None and Restorationist Restorationist Beliefs: Christians marital status: Current Living Situation: Spouse current occupational status: retired Other Information That Helps Us Care for You: No Feels Safe at Home: Yes Safety Concerns: Feels Safe At This Time caffeine: Yes during the past year weight has: remained stable Dental Care, Regularly: Yes Physical Activity Frequency: Does not Exercise Seatbelt Use: always Sunscreen Use: No Assistive Devices: Denture - Upper, Denture - Lower and Hearing Aid - Left Review of Systems All systems reviewed & are unremarkable except as noted in HPI & below Physical Exam Physical Exam: General: Alert/Arousable. No Acute illness. . HEENT: Inspection normal. Normal inspection of face. Normal inspection of neck. Psychologic: Normal affect/No change in mentation. Respiratory: No use of accessory muscles. No respiratory changes or exacerbation or changes with tachypnea or dyspnea. Cardiovascular: No tachycardia Skin: [place] and Dry. No new rashes or visible lesions. Abdomen: Normal inspection. No guarding. : Hagan in place. Lesion of glans PG Care Time/CCT Total # of Minutes Spent Total Time Spent with Patient: Total time spent is greater than 50% in coordination of care (as documented) at patient's floor/unit and/or counseling patient: Coding Level of Care Code None Diagnoses Penile cancer C60.9
[2021-12-13] MEDS ORDERED: PROPOFOL IV EMULSION 10 MG/ML 20 ML VIAL IV ONE ×3 (09:26→10:58)
[2021-12-13] MEDS ORDERED: fentaNYL citrate 100 MCG/2 ML VIAL ONE ×3 (09:26→10:51)
[2021-12-13] MEDS ORDERED: MIDAZOLAM HCL 1 MG/ML 2ML VIAL ONE ×2 (09:26→09:47)
[2021-12-13] MEDS ORDERED: LIDOCAINE 2% 2 ML VIAL/AMP(20MG/ML) INFIL ONE ×2 (09:26→09:47)
[2021-12-13] MEDS ORDERED: ONDANSETRON INJ 2 MG/ML 2 ML VIAL IV PRN ×2 (09:42→13:36)
[2021-12-13] MEDS ORDERED: ePHEDrine sulfate 50 MG/ML AMP IV PRN (09:42)
[2021-12-13] MEDS ORDERED: fentaNYL citrate 100 MCG/2 ML VIAL IV PRN (09:42)
[2021-12-13] MEDS ORDERED: ATROPINE SULFATE 0.1 MG/ML 10ML SYR IV PRN (09:42)
[2021-12-13] MEDS ORDERED: BUPIVACAINE 0.5 % 5 MG/1 ML MPF 30ML VIAL ONE (09:46)
[2021-12-13] MEDS ORDERED: EPINEPHrine INJ 1 MG/ML AMP ONE (09:46)
[2021-12-13] MEDS ORDERED: VANCOMYCIN HCL 1000MG/20ML VIAL ONE (09:46)
[2021-12-13] MEDS ORDERED: LIDOCAINE 1%/EPINEPHRINE 1:100,000 50 ML VIAL ONE ×2 (09:46→10:02)
[2021-12-13] MEDS ORDERED: ONDANSETRON INJ 2 MG/ML 2 ML VIAL ONE (10:30)
[2021-12-13] MEDS ORDERED: DEXAMETHASONE SOD INJ 4 MG/ML VIAL ONE (10:30)
[2021-12-13] MEDS ORDERED: BACITRACIN OINT 15 GM TUBE ONE (11:56)
--- NOTE | 2021-12-13 12:00 | Post Operative Brief Note ---
PG Immediate Post Op with CF Date of Surgery December 13, 2021 Pre & Post Diagnosis Operation Date: 12/13/21 09:20 Pre-Op Diagnosis: Penile Cancer Post-Op Diagnosis: Penile Cancer I identified the patient and participated in the time-out.: Yes Procedure Operation Date: 12/13/21 09:20 Actual Procedures p Partial Penectomy(Not Applicable) - Grant Mendoza, Surgeon Grant Mendoza, II, DO Full Stack Net Developer None Estimated Blood Loss 10 Findings Consistent with Post-Op Diagnosis Mass on glans with minor ventral portion possibly involving distal shaft. Specimens Specimen Description: 1. Frozen: Urethra - tagged at distal 6:00 A. Partial Penectomy Drains Hagan Catheter Anesthesia Type General Complications none Disposition Disposition: Recovery Room
--- NOTE | 2021-12-13 12:19 | Operative Report ---
PG Post Operative Report Pre & Post Diagnosis Operation Date: 12/13/21 09:20 Pre-Op Diagnosis: Penile Cancer Post-Op Diagnosis: Penile Cancer I identified the patient and participated in the time-out.: Yes Procedure Operation Date: 12/13/21 09:20 Actual Procedures p Partial Penectomy(Not Applicable) - Grant Mendoza DO Surgeon Grant Mendoza, II, DO Insulation Blanket Maker None Estimated Blood Loss 10 Findings Consistent with Post-Op Diagnosis Mass of glans with possible involvement of distal penile shaft near the ventral portion. Specimens Partial Penectomy Frozen section of distal urethra tagged at 6 o'clock - Negative for sign of malignancy Drains 18 Fr barlow Anesthesia Type General Complications none Disposition Disposition: Recovery Room Indications Penile tumor found to be invasive squamous cell carcinoma. Risks and benefits discussed at length. Description of Procedure Patient was informed of all risks and benefits and all questions answered. He gave consent for the procedure. The patient was brought back to the operating room. Patient was placed under anesthesia in the supine position. Patient was prepped and draped in the regular sterile fashion. A time out was completed. The correct patient and procedure were identified and confirmed. With the time out completed and the patient prepped, the glans and penile tissues were assessed. . The incision was planned and the skin was marked. A 2 cm distance was assessed from the proximal edge of the the area appearing to be continuous with the tumor. The remaining penile tissue was assessed and approx 4.5 cm of tissue appeared to be salvageable for the creation of the penile reconstruction. The base of the penis was assessed and a penile block was completed with 50-50 lidocaine-marcaine local injected into the subcutaneous tissues at the dorsal base of penis after aspirating without blood or issues. A vessel loop was then utilized as a tourniquet at the base. A barlow was placed to assist for identification and dissections. A 15-blade scalpel was used to make the distal incision. Care was taken to monitor the important structures of the penis and meatus and glans. Cautery was used for any bleeding. Care was taken to monitor the entire time. Lenox fascia was then incised. The dorsal neurovascular bundle was assessed. A 3-0 Vicryl suture was used to ligate the tissue. The corporal bodies were assessed. A 2 cm distance from the tumor edge was again assessed. A 1 cm length of urethra and corpora spongiosum was assessed. These areas were marked. The corpora spongiosum was dissected free from the corporal bodies. The scalpel was then used to cut through the corporal bodies. Metzenbaum scissors were used to cut through the urethral tissues. No issues were noted with the tissue. No sign of tumor within the tissues. The dorsal aspect of the corporal bodies were then ligated with a 3-0 vicryl suture in a figure of 8 stitch. The catheter was removed. The 6 oclock position of the distal urethral edge was tagged with a silk 3-0 suture. The metzenbaum scissors were used to cut a very small segment to send for frozen due to concern on initial pathology for invasion into the urethral tissues. The wound bed was inspected. No bleeding or other issues. Copious irrigation was utilized. The corporal bodies were then closed with a running 2-0 vicryl suture. The surrounding Herring's tissue was then closed with a running 3-0 vicryl suture. The urethral tissue was spatulated at the 12 o'clock position. This was then fixed with interrupted 4-0 Monocryl suture. This started at 6 o'clock and followed around circumferentially. At the 12 o'clock position. The skin edges were sut ured to the 12 o'clock position of the urethra using the 4-0 Monocryl on each side. The remaining skin was then closed with a 3-0 vicryl suture in a running fashion. The area was cleaned. A topical antibacterial ointment was then placed. A 18 Fr barlow catheter was placed. The patient was cleaned. A bandage was then wrapped around the entire area with a Coban dressing wrapped around as the last layer. Due to the patient's prominent mons pubic subcutaneous tissues, the penile stump did retract. This was bandaged with additional Coban to allow better exposure and healing. The patient was cleaned, aroused from anesthesia, and transferred to the pacu in stable condition having tolerated the procedure well with no complications. I was present and participated in all aspects of the procedure. All counts were correct x 2. Plan to monitor overnight. Will likely be discharged in the morning if doing well. Will need followup in approx 10 days to review pathology and discuss furt her options and management. I attest to the content of the Intraoperative Record and any orders documented therein. Any exceptions are noted below.
[2021-12-13] MEDS ORDERED: ACETAMINOPHEN 325 MG TAB PO PRN (13:36)
[2021-12-13] MEDS ORDERED: oxyCODONE HCL IR 5 MG TAB (IMMEDIATE RELEASE) PO PRN ×2 (13:36)
[2021-12-13] MEDS ORDERED: OXYBUTYNIN CHLORIDE 5 MG TAB PO PRN (13:36)
[2021-12-13] MEDS ORDERED: LACTATED RINGER'S 1,000 ML IV SCH (13:36)
[2021-12-13] MEDS ORDERED: MoRPHine SULFATE 2 MG/ML CARP IV PRN ×2 (13:36)
--- NOTE | 2021-12-13 13:37 | Anesthesiology Progress Note ---
Date of Service December 13, 2021 Anesthesia Post Procedure Vital Signs Vital Signs: Temp Pulse Pulse Resp BP Pulse Ox 12/13/21 13:20 36.1 C L 53 L 17 176/86 H 97 12/13/21 13:10 36.1 C L 54 L 18 177/80 H 94 12/13/21 13:00 58 L 18 169/80 H 97 12/13/21 12:50 57 L 17 165/81 H 96 12/13/21 12:40 57 L 19 164/82 H 96 12/13/21 12:30 55 L 18 163/76 H 93 12/13/21 12:20 59 L 18 177/81 H 95 12/13/21 12:12 36.5 C 60 16 187/86 H 99 12/13/21 08:08 36.8 C 59 L 20 172/87 H 95 Transfer of Care Handoff Completed per policy Notes Mental Status: alert / awake / arousable Patient Amnestic to Procedure: Yes Nausea / Vomiting: adequately controlled Pain: adequately controlled Airway Patency, RR, SpO2: stable & adequate BP & HR: stable & adequate Hydration State: stable & adequate Anesthetic Complications: no major complications apparent
[2021-12-13] MEDS ORDERED: hydrALAZINE HCL 20 MG/ML VIAL IV STA (15:40)
[2021-12-13] MEDS ORDERED: hydrALAZINE HCL 20 MG/ML VIAL IV PRN (16:08)
--- NOTE | 2021-12-13 16:23 | Hospitalist Consultation ---
Date of Consultation December 13, 2021 Assessment & Plan (1) Accelerated essential hypertension: Patient with a longstanding history of hypertension. With review of old records, was on carvedilol in the past (given his history of underlying CAD) but stopped due to cultural beliefs (per documentationPCP) - With review of records, blood pressure elevated since 2019 ([id number] systolic), currently 189/87 - Lengthy discussion with patient regarding the importance of hypertension control and risk of stroke - Ideally, would add a beta-rosy; however, heart rate likely intolerant to this as currently 55 - For now, will give 1 dose of IV hydralazine. Can continue this every 6 hours with parameters - Start lisinopril 10 mg in a.m. with up titration to slowly drop of blood pressure as has been accelerated for quite some time. Patient's renal function appropriate and he should be able to tolerate this (2) Penile cancer: - S/p partial penectomyDr. Mendoza - Hagan catheter in place and managed by urology (3) Coronary artery disease: - Okay to resume aspirin (was discussed with Dr. Mendoza) - Was on carvedilol in the past. Heart rate unlikely to tolerate this as currently marginal at 55 - Add lisinopril as outlined above - Does not take any statin therapy or lipid agents but with review of PCP records, has refused to this for cultural believes (4) Prediabetes: - Last A1c done 2019 and slightly elevated at 6.8%. Has refused subsequent labs since - We will obtain A1c in the morning for further risk stratification. Fasting blood sugar slightly elevated today at 133 - Recommend a carb consistent/heart healthy diet (5) Glaucoma: Continue timoptic Recommend DVT prophylaxis, adequate postoperative pain management, and incentive spirometryat discretion of primary team Will continue to follow along with this patient. Thank you for allowing us to participate in the care of this patient. Plan of care discussed with Dr. Ricci. Supervising Physician Co-Signing Physician Notes JADE Supervision Note: I personally saw and examined the patient. I verified all cox points and agree with JADE Thacker with the following exceptions and/or additions: Patient is admitted after having penectomy with urology and hospitalist service consulted for postoperative hypertension. Patient is asymptomatic with this and this is longstanding. History and ROS reviewed as above O- Vitals reviewed Gen: Alert and awake, pleasant NAD HEENT: Anicteric sclerae, EOMI CV: RRR no mgr nl S1S2 Pulm: CTAB no wcr Abd: +BS soft NT ND no masses or hernias Ext: No edema Skin: No rashes, warm/dry Neuro: Full strength throughout Labs and ECG reviewed preoperatively [id number] male here for recovery from penectomy, with hypertension Agree with addition of lisinopril in the morning, IV hydralazine as needed Follow-up with PCP Otherwise plan outlined as above History of Present Illness Reason for Consultation: Hypertension Attending Physician: Grant Mendoza, II, DO History of Present Illness Mr. Milton is an 80-year-old male speaking only [place]. Hydrologic Modeler utilized. Has an underlying history of CAD with multiple drug-eluting stents, metabolic disorder, HTN, BPH and penile cancer. He underwent partial penectomy today by Dr. Mendoza. Was hypertensive intraoperatively but otherwise had no perioperative complication. Has been having accelerated hypertension postope ratively prompting medical consult. Patient asymptomaticdenies headache, confusion, chest pain, shortness of breath, epistaxis, nausea or vomiting. With review of old records, patient has had accelerated hypertension since 2019. Hewas on Coreg in the past but PCP has documented that this was stopped due to patient's druze believes. Patient's blood pressure has been running 1 80-1 90 systolic since 2019. Preoperatively, was 199/90. Currently, blood pressures 189/87 and his heart rate is 55. He denies fevers, chills, chest pain, shortness of breath, abdominal pain, nausea or vomiting. Not having any pain from his procedure. Has an indwelling Hagan catheter in place. Lives with the . Hoping to get home upon discharge. Denies personal and/or family history of DVT/PE/blood dyscrasia. Allergies Allergy/AdvReac Type Severity Reaction Status Date / Time No Known Drug Allergies Allergy Unknown none Verified 12/13/21 08:01 Home Medications Medication Instructions Recorded Confirmed Type clotrimazole-betamethasone 1 1 applic TOPICAL .qhs #45 g 09/28/21 12/13/21 Rx %-0.05 % topical cream nystatin 100,000 unit/gram topical 1 applic TOPICAL DAILY #30 g 11/16/21 12/13/21 Rx cream triamcinolone acetonide 0.1 % 1 applic TOPICAL DAILY #30 g 11/16/21 12/13/21 Rx topical cream aspirin 81 mg tablet,delayed 81 mg PO QAM 12/01/21 12/13/21 History release (Adult Low Dose Aspirin) finasteride 5 mg tablet (Proscar) 5 mg PO DAILY 12/02/21 12/13/21 History oxybutynin chloride 5 mg tablet 5 mg PO Q8H PRN #20 tab 12/02/21 12/13/21 Rx oxycodone-acetaminophen 7.5 mg-325 1 tab PO Q8H PRN #7 tab 12/02/21 12/13/21 Rx mg tablet (Percocet) phenazopyridine 200 mg tablet 200 mg PO Q8H PRN #10 tab 12/02/21 12/13/21 Rx (Pyridium) tamsulosin 0.4 mg capsule 0.4 mg PO HS #30 cap 12/02/21 12/13/21 Rx doxycycline hyclate 100 mg capsule 100 mg PO BID 12/13/21 12/13/21 History (Vibramycin) timolol maleate 0.5 % eye gel 1 drp OPB DAILY 12/13/21 12/13/21 History forming solution (Timoptic-XE) Patient History Medical History Anemia H&H 11/2021; chronic since 2017, pt declined GI evaluation or additional monitoring labs per PCP records Ascending aorta dilation mild on 2017 stress echo Benign prostatic hyperplasia with urinary obstruction Cardiomyopathy type not specified in records, known CAD s/p STEFFANIE to RCA in 2017, EF 40% on stress echo in 2017 Coronary artery disease s/p STEFFANIE to RCA 2017; residual 95% stenosis proximal small Cx and 50-60% stenosis proximal LAD-per cath report: "...plan to medically manage for now" Glaucoma Hearing impairment Hypertension Left ventricular diastolic dysfunction, NYHA class 1 EF 40%, global hypokinesis per 2017 stress echo Leukopenia WBC below 4 since 2018 Localized swelling of both lower legs on HCTZ prn by PCP, last echo 2017 Mitral regurgitation mild per 2017 echo Penile cancer Prediabetes last A1c 6.8% 2019, pt declined additional testing per PCP records Status post insertion of drug-eluting stent into left anterior descending (LAD) artery 2011 per PCP records Tricuspid regurgitation mild per 2017 stress echo Venous insufficiency Surgical History History of cardiac cath 07/26/2017: Left main: very long, mild diffuse disease LAD: 50-60% stenosis Cx: 95% hazy stenosis in proximal segment RCA: 80% long proximal to mid stenosis Summary: Severe multi-vessel CAD 80% proximal-mid RCA 95% proximal small Cx 50-60% proximal LAD Successful PCI of proximal to mid RCA with STEFFANIE Cx is a small vessel, LAD relatively small to moderate sized-plan to medically manage for now History of mastoidectomy Left Hx of cataract surgery Family History Mother Coronary heart disease Other No family history of adverse response to anesthesia Social History Smoking Status: Never smoker Second Hand Exposure: No; Do You Dip or Chew Tobacco: No; Tobacco Cessation Education Requested by Patient: No Hx Alcohol Use: No Hx Substance Use: No Preferred Language: [place] Communication Ability: Effective Communication Tools: IPad and Other Hydrologic Modeler Required: Yes Beliefs That Will Affect Care: None and Sikhism Sikhism Beliefs: Christians marital status: Current Living Situation: Spouse current occupational status: retired Other Information That Helps Us Care for You: No Feels Safe at Home: Yes Safety Concerns: Feels Safe At This Time caffeine: Yes during the past year weight has: remained stable Dental Care, Regularly: Yes Physical Activity Frequency: Does not Exercise Seatbelt Use: always Sunscreen Use: No Assistive Devices: Denture - Upper, Denture - Lower and Hearing Aid - Left Review of Systems Review of Systems: All systems reviewed and are unremarkable except as noted in HPI and below Denies fevers, chills, headache, nasal congestion, sore throat, cough, chest pain, shortness of breath, palpitations, orthopnea, PND, abdominal pain, nausea, vomiting, diarrhea, constipation, dysuria, hematuria, frequency, back pain, joint pain or swelling, easy bruising or bleeding, skin lesions or rashes. Physical Exam Physical Exam: General: Resting comfortably in his hospital bed. He does not appear ill or toxic. NAD. HEENT: Head is AT/NC. Buccal mucosa is moist and pink Neck: No JVD. Negative hepatojugular reflex Cardiac: RRR with 1/6 NATHALIE Lungs: CTA without W/R/R Abdomen: Normoactive X4. Soft and nontender in all quadrants. Hagan Catheter in place Extremities: No peripheral clubbing cyanosis or edema Neuro: A&O X4. Cranial nerves II through XII are grossly intact. No focal neuro deficits Skin: No obvious skin lesions or rashes Psych: Appropriate affect. Pleasant and cooperative Results & Data Results & Data ([facility]) Vital Signs (Past 12 Hours) Vital Signs Temp Pulse Pulse Resp BP Pulse Ox 12/13/21 15:40 36.3 C L 59 L 18 180/83 H 97 12/13/21 14:42 55 L 18 165/85 H 98 12/13/21 14:00 57 L 18 182/82 H 96 12/13/21 13:20 36.1 C L 53 L 17 176/86 H 97 12/13/21 13:10 36.1 C L 54 L 18 177/80 H 94 12/13/21 13:00 58 L 18 169/80 H 97 12/13/21 12:50 57 L 17 165/81 H 96 12/13/21 12:40 57 L 19 164/82 H 96 12/13/21 12:30 55 L 18 163/76 H 93 12/13/21 12:20 59 L 18 177/81 H 95 12/13/21 12:12 36.5 C 60 16 187/86 H 99 12/13/21 08:08 36.8 C 59 L 20 172/87 H 95 Laboratory Results Preoperative labs drawn 12/01: WBC count 3.54 H&H: 12.5/36.4 Platelet count: 161 Sodium: 139 Potassium: 4.2 Chloride: 106 CO2: 25 BUN: 21 Creatinine: 0.92 Glucose: 176 PG Care Time/CCT Total # of Minutes Spent Total Time Spent with Patient: Total time spent is greater than 50% in coordination of care (as documented) at patient's floor/unit and/or counseling patient: Coding Level of Care Code 22176 Inpt Consult Level 5 Diagnoses Accelerated essential hypertension I10 Penile cancer C60.9 Coronary artery disease I25.10 Prediabetes R73.03 Glaucoma H40.9
[2021-12-13] MEDS: ceFAZolin 2000MG 2,000 MG/15 ML SYR IV SCH (18:31)
[2021-12-13] MEDS: DOCUSATE SODIUM 100 MG CAP PO SCH (20:36)
[2021-12-13] MEDS ORDERED: TAMSULOSIN HCL 0.4 MG CAP PO SCH (21:00)
[2021-12-14] MEDS: ceFAZolin 2000MG 2,000 MG/15 ML SYR IV SCH (01:29)
[2021-12-14 07:19] LABS: Basophils # (auto) 0.01 K/uL (0-0.2); Basophils % (auto) 0.2 %; Hematocrit (blood only) 33.7 % (42-52); Hemoglobin 11.7 g/dL (14.0-18.0); Immature Granulocytes # (auto) 0.01 K/uL (0.00-0.02); Immature Granulocytes % (auto) 0.2 %; Lymphocytes # (auto) 0.82 K/uL (1.2-3.4); Lymphocytes % (auto) 16.8 %; Mean Corpuscular Hemoglobin 32.6 pg (25-34); Mean Corpuscular Hgb Conc 34.7 g/dL (32-36); Mean Corpuscular Volume 93.9 fL (80-100); Mean Platelet Volume 10.7 fL (7.4-10.4); Monocytes # (auto) 0.38 K/uL (0.11-0.59); Monocytes % (auto) 7.8 %; Neutrophils # (auto) 3.66 K/uL (1.4-6.5); Platelet Count 152 K/uL (130-400); RDW Coefficient of Variation 14.5 % (11.5-14.5); RDW Standard Deviation 49.3 fL (36.4-46.3); Red Blood Count 3.59 M/uL (4.7-6.1); White Blood Count 4.88 K/uL (4.8-10.8)
[2021-12-14 07:39] LABS: BUN Creatinine Ratio 22.2 (10-20); Calcium 8.4 mg/dl (8.5-10.1); Creatinine Clr Calc Pharmacy 71.8 ml/min; Est GFR (African American) 91.9 ml/min; Est GFR (Non-African American) 79.3 ml/min; Potassium 4.1 mmol/L (3.5-5.1)
--- NOTE | 2021-12-14 07:58 | Urology Progress Note ---
Date of Service December 14, 2021 Assessment & Plan (1) Penile cancer: Plan: 81yo M admitted postoperatively - POD #1 s/p Partial Penectomy with Dr. Mendoza. - Pt feeling well post procedure, minimal pain. - Afebrile and hemodynamically stable. - Labs reviewed - Wbc 4.88, Creatinine 0.90, Hemoglobin 11.7. - Hagan catheter intact draining clear yellow urine. - Maintain Hagan catheter. - Encourage ambulation. - Continue carb consistent/heart healthy diet. - Hospital medicine consulted due to hypertension postoperatively - Appreciate recommendations. - Anticipate home later today given he is medically stable and continues to progress as expected. - Pt reassessed this afternoon. - Feeling well, progressing as expected. - Tolerating diet. - Minimal pain. - Ambulating without issue. - Hagan draining clear yellow urine. - Discussed with hospital team, pt stable from medical standpoint for discharge. - Expected clinical course reviewed with patient and son (via telephone call). All questions were answered. - Postoperative follow-up appointment in place. - Pt stable for discharge - Home with Hagan catheter. Admission and Anticipated Discharge Date Admission Date: December 13, 2021 Subjective POD #1 s/p partial penectomy Pt examined at bedside this AM. Awake, resting in bed on arrival. No acute distress. Denies significant pain. No fevers. Hagan catheter intact, draining clear yellow urine. Urine output overnight - 650ml. Dressings intact to surgical site. Tolerating diet, no nausea or vomiting. Hospital medicine consulted given hypertension postoperatively - Given prn Hydralazine and started on lisinopril. BP improved this morning, 154/70 Review of Systems Constitutional: as per Subjective / HPI Gastrointestinal: as per Subjective / HPI Genitourinary: + as per Subjective / HPI Physical Exam Constitutional: no acute distress Respiratory: normal respiratory effort; no respiratory distress and no labored breathing Gastrointestinal (Abdomen): Percussion/Palpation: abdomen soft; abdomen nontender and no guarding Skin: Warm and dry Neurologic: awake Psychiatric: Orientation: alert, oriented x 3 and cooperative Genitourinary: Hagan catheter intact, draining clear yellow urine. Dressings intact to penile stump Results & Data ([facility]) Vital Signs (Past 12 Hours) Vital Signs Temp Pulse Pulse Resp BP Pulse Ox 12/14/21 07:48 36.9 C 71 16 154/70 H 94 12/14/21 03:54 37 C 79 18 153/71 H 95 12/13/21 22:34 37 C 80 18 152/74 H 93 PG Care Time/CCT Total # of Minutes Spent Total Time Spent with Patient: Total time spent is greater than 50% in coordination of care (as documented) at patient's floor/unit and/or counseling patient: Coding Level of Care Code 90671 Subseq Hosp Care Lvl 2 Diagnoses Penile cancer C60.9
[2021-12-14 08:01] LABS: Estimated Average Glucose 166 mg/dl; Hemoglobin A1C 7.4 % (4.5-5.6)
[2021-12-14] MEDS: DOCUSATE SODIUM 100 MG CAP PO SCH (08:14)
[2021-12-14] MEDS ORDERED: lisinopril 20 MG TAB PO SCH (09:00)
[2021-12-14] MEDS ORDERED: ASPIRIN 81 MG ECTAB PO SCH (09:00)
[2021-12-14] MEDS ORDERED: TIMOLOL GFS 0.5% OPH SOLN 74 DROPS/5 ML BTL OPB SCH (09:00)
--- NOTE | 2021-12-14 10:27 | Hospitalist Progress Note ---
Date of Service December 14, 2021 Assessment & Plan (1) Accelerated essential hypertension: Plan: Patient with a longstanding history of hypertension. With review of old records, was on carvedilol in the past (given his history of underlying CAD) but stopped due to cultural beliefs (per documentationPCP) - With review of records, blood pressure elevated since 2020 ([id number] systolic), was 189/87 postoperative - Lengthy discussion with patient regarding the importance of hypertension control and risk of stroke - Ideally, would add a beta-rosy; however, avoided given HR of 55 - On POD #0, given hydralazine 10 mg IV with subsequent heart rate of 165/95 - Started lisinopril 20 mg in a.m. Patient's renal function appropriate and he should be able to tolerate this - When seen on daily rounds POD #1, BP much improved at 144/75. Patient without any ill effects to lisinopril From a medical standpoint, patient is stable for discharge to home. Although blood pressure remains slightly above goal, should continue to see added effects from lisinopril over the next 1 to 2 weeks. Follow-up with PCP for BP check Recommend basic metabolic panel within 2 to 4 weeks to reassess renal function and potassiumat discretion of PCP (2) Penile cancer: Plan: - S/p partial penectomyDr. Mendoza - Hagan catheter in place and managed by urology - POD #1 (3) Coronary artery disease: Plan: - Okay to resume aspirin (was discussed with Dr. Mendoza) - Was on carvedilol in the past. Heart rate unlikely to tolerate this as currently marginal at 55 - Add lisinopril as outlined above - Does not take any statin therapy or lipid agents but with review of PCP records, has refused to this for cultural believes (4) Prediabetes: Plan: - Last A1c done 2019 and slightly elevated at 6.8%. Has refused subsequent labs since - A1c obtained and elevated at 7.4%--would advise carb consistent/heart healthy diet and avoiding concentrated sweets. - Can repeat A1c in 3 months and if still elevated, consider metformin 500 mg with dinner--at discretion of PCP (5) Glaucoma: Plan: Continue timoptic Plan: From a medical standpoint, patient is stable for discharge to home with addition of lisinopril, recommendations for follow-up labs in 2 to 4 weeks (at discretion of PCP) and follow-up with PCP within 1 week to follow-up on BP control. This was discussed with urology. Thank you for allowing us to participate in the care of this patient. Admission and Anticipated Discharge Date Admission Date: December 13, 2021 Subjective Patient seen on daily rounds today. Vocalizes no complaints or concerns. Denies fevers, chills, chest pain, shortness of breath, abdominal pain, nausea o r vomiting. Nursing voices no complaints or concerns. BP still slightly above goal but improved overall. Currently 144/75. Patient is tolerating lisinopril without ill effects. Review of Systems Review of Systems: All systems reviewed and are unremarkable except as noted in HPI and below Denies fevers, chills, headache, nasal congestion, sore throat, cough, chest pain, shortness of breath, palpitations, orthopnea, PND, abdominal pain, nausea, vomiting, diarrhea, constipation, dysuria, hematuria, frequency, back pain, joint pain or swelling, easy bruising or bleeding, skin lesions or rashes. Physical Exam Physical Exam: General: Resting comfortably in his hospital bed. He does not appear ill or toxic. NAD. HEENT: Head is AT/NC. Buccal mucosa is moist and pink Neck: No JVD. Negative hepatojugular reflex Cardiac: RRR with 1/6 NATHALIE Lungs: CTA without W/R/R Abdomen: Normoactive X4. Soft and nontender in all quadrants. Hagan Catheter in place Extremities: No peripheral clubbing cyanosis or edema Neuro: A&O X4. Cranial nerves II through XII are grossly intact. No focal neuro deficits Skin: No obvious skin lesions or rashes Psych: Appropriate affect. Pleasant and cooperative Results & Data Results & Data ([facility]) Vital Signs (Past 12 Hours) Vital Signs Temp Pulse Pulse Resp BP Pulse Ox 12/14/21 07:48 36.9 C 71 16 154/70 H 94 12/14/21 03:54 37 C 79 18 153/71 H 95 12/13/21 22:34 37 C 80 18 152/74 H 93 Laboratory Results 12/14/21 07:08 12/14/21 07:08 PG Care Time/CCT Total # of Minutes Spent Total Time Spent with Patient: Total time spent is greater than 50% in coordination of care (as documented) at patient's floor/unit and/or counseling patient: Coding Level of Care Code 51012 Inpt Consult Level 3 Diagnoses Accelerated essential hypertension I10 Penile cancer C60.9 Coronary artery disease I25.10 Prediabetes R73.03 Glaucoma H40.9
--- NOTE | 2021-12-14 15:43 | Discharge Summary ---
Date of Service December 14, 2021 Admission HPI Per Admitting Provider 81yo M recently diagnosed with penile cancer who presented for partial penectomy Admission Exam Per Admitting Provider Physical Exam: General: Alert/Arousable. No Acute illness. . HEENT: Inspection normal. Normal inspection of face. Normal inspection of neck. Psychologic: Normal affect/No change in mentation. Respiratory: No use of accessory muscles. No respiratory changes or exacerbation or changes with tachypnea or dyspnea. Cardiovascular: No tachycardia Skin: Curran and Dry. No new rashes or visible lesions. Abdomen: Normal inspection. No guarding. : Hagan in place. Lesion of glans Principal Diagnosis Penile Cancer Discharge Exam Constitutional: no acute distress Respiratory: normal respiratory effort; no respiratory distress and no labored breathing Gastrointestinal (Abdomen): Percussion/Palpation: abdomen soft; abdomen nontender and no guarding Skin: Warm and dry Neurologic: awake Psychiatric: Orientation: alert, oriented x 3 and cooperative Genitourinary: Hagan catheter intact, draining clear yellow urine. Dressings intact to penile stump Discharge Data Allergies Allergy/AdvReac Type Severity Reaction Status Date / Time No Known Drug Allergies Allergy Unknown none Verified 12/13/21 08:01 Consultations 12/13/21 14:21 Consult Hospitalist Routine Procedures Performed Operation Date: 12/13/21 09:20 Actual Procedures p Partial Penectomy(Not Applicable) - Grant Mendoza, DO Diabetes Follow up Diabetes Follow-up Needed for Newly Diagnosed Diabetes Hospital Course (1) Penile cancer: 81yo M admitted s/p partial penectomy - Pt tolerated procedure well. - Stable overnight with stable labs and appropriate urine output. - Hospital medicine consulted due to hypertension postoperatively. - Pt given PRN Hydralazine and started on Lisinopril. - POD #1 BP was still above goal, but improved. Patient was advised to follow- up with PCP for further management and monitoring. - Minimal pain. - Tolerated diet. - Ambulated without issue. - He was subsequently discharged home on POD #1 with a Hagan catheter. - He was in stable condition at the time of discharge. Total Time Total Time Spent Total Time Spent (In Minutes): 15 Discharge Plan Discharge Items Patient Disposition: Home - Home Health Services Reason For Visit: Penile Cancer Discharge Diagnosis: Penile Cancer Activity: Per Instructions section Lifting: Gradually increase as tolerated Bathing Comment: Ok to shower. Sexual Activity: Wait until after follow-up appointment Exercise/Sports: Wait until after follow-up appointment Non-emergency contact: Surgeon and Urologist Call non-emergency contact if: you have any medication questions, your pain is not controlled, your pain is worsening, your wound has increased redness, your wound has increased drainage and your wound pain has increased Follow-up/Referrals: Mandi Davis MD [Primary Care Provider] - Grant Mendoza DO [Physician] - 12/24/21 10:00 am Diet: Carb Consistent or DM2 and Heart Healthy Addtl Attending Provider Instructions: Please take all medications as prescribed and keep all follow-ups as scheduled. Please call the urology office at [phone] with any questions, concerns or to reschedule appointments for any reason. We are happy to assist you. You can remove your surgical dressing later today or tomorrow. Tips for your recovery at home: We recommend having someone with you for the first few days after surgery to help care for you. It is okay to shower. Please avoid swimming, bathing or using hot tub until incisions are well healed. Drink plenty of fluids (enough to keep your urine very light colored). This will help keep a healthy flow of urine. We recommend using stool softener (i.e. Colace) to prevent constipation and straining, especially the first two weeks post operatively. If you go home with a catheter, please wash tubing where it enters your body twice daily with mild soap (Dove or Dial). When to call [facility] Urology at [phone]: Chest pain or trouble breathing (call [phone] or go to the hospital). Fever of 101F or higher. Pain that is not controlled with medicines. Symptoms of infection at incision site, including redness or swelling, warmth, or bad-smelling drainage If you have catheter, and you notice: o Bloody urine or drainage that is dark red or has large clots (Please remember a small amount of blood is normal) o No drainage from the catheter for more than 6 hours o The catheter comes out of your bladder Addtl Clinical Research Nurse Provider Instructions: Your blood pressure was noted to be elevated pre and post surgery. It appears as if your blood pressure has been elevated over the past 2 years. You have been started on lisinopril for added blood pressure control. Take this once daily In addition, your blood sugars are slightly elevated and your A1c is consistent with diabetes mellitus. I know you have been reluctant to medications in the past. Would advise maintaining a carb consistent diet. Can talk to your PCP regarding the addition of metformin. Follow-up with your PCP within 7 to 10 days Pending Studies at Discharge: Yes Stand-Alone Forms: My [facility], Smoking Cessation Medications and DC Order Prescriptions: New lisinopril 20 mg Tablet 20 mg PO QAM Qty: 30 RF: 0 Continued nystatin 100,000 unit/gram cream 1 applic topical DAILY Qty: 30 RF: 3 triamcinolone acetonide 0.1 % cream 1 applic topical DAILY Qty: 30 RF: 3 clotrimazole-betamethasone 1-0.05 % cream 1 applic topical .qhs Qty: 45 RF: 11 aspirin [Adult Low Dose Aspirin] 81 mg tablet,delayed release (DR/EC) 81 mg PO QAM RF: 0 finasteride [Proscar] 5 mg tablet 5 mg PO DAILY RF: 0 phenazopyridine [Pyridium] 200 mg tablet 200 mg PO Q8H PRN (Reason: pain) Qty: 10 RF: 0 tamsulosin 0.4 mg capsule 0.4 mg PO HS Qty: 30 RF: 0 oxycodone-acetaminophen [Percocet] 7.5-325 mg tablet 1 tab PO Q8H PRN (Reason: pain) Qty: 7 RF: 0 oxybutynin chloride 5 mg tablet 5 mg PO Q8H PRN (Reason: bladder spasms) Qty: 20 RF: 0 doxycycline hyclate [Vibramycin] 100 mg capsule 100 mg PO BID RF: 0 timolol maleate [Timoptic-XE] 0.5 % Gel Forming Solution 1 drp OPB DAILY RF: 0 Discharge Orders: Discharge Order (Routine); Ordered 12/14/21 Ordered By: Aneta Ledezma/Other Patient Handouts: 5 Steps for Eating Healthier, Type 2 Diabetes Admission Data Admit Date/Time: 12/13/21 09:48 Attending Provider: Grant Mendoza Admit Provider: Grant Mendoza Primary Care Provider: Mandi Davis V. Other Providers: Redd Yang ; Aneta Lr ; Gonsalo Johnson ; Rad Oropeza ; Hugo Rhodes ; Foster Liao ; Scout Sears ; Malgorzata Ricci ; Nitesh Riggs ; Priti Aguero ; Sincere Mortensen ; Ozzie Perry ; Annette Killian ; Geovanna Merrill ; Neymar Gold ; Aneta Branch ; Vikash Ace ; Yessenia Harman ; Rohith Crump ; Gonsalo Medina ; Tali Whitehead ; Jodee Garcia ; Jay Talley ; Janki Thacker ; Dano Duvall ; Brando Gaspar ; Hanna Martinez ; Andres Smith ; Art Kumar Other Interventions: Discharge Summary Assessment (RN) Last Done: 12/14/21 12:24 Coding Level of Care Code D/C DAY MANAGEMENT <30 MINS Diagnoses Penile cancer C60.9
== END 2021-12-14 14:04 | disposition home or self-care (01) | DRG 709 ==
LOC: ASU 07:35 → INTOOBSV 09:48 → 3E 09:48 → OBSVTOIN 09:48

== ENCOUNTER 2022-11-01 13:41 | Inpatient (IN) ==
[2022-11-01] MEDS ORDERED: SODIUM CHLORIDE 0.9% 250 ML IV PRN (14:21)
--- NOTE | 2022-11-01 19:50 | History & Physical Report ---
Date of Service November 01, 2022 Assessment & Plan (1) Acute hemolytic anemia: Plan: Elevated LDH, bilirubin and initial improvement in steroids all support diagnosis Repeat Hgb. Transfuse 2 units initially, will place further transfusion orders based on repeat Hgb. Aim Hgb > 7 overnight Solu-medrol 1mg/kg daily, if prolonged taper consider PJP prophylaxis, will start on GI prophylaxis with pantoprazole 40mg PO daily (2) Coronary artery disease: Plan: s/p STEFFANIE to RCA 2016; residual 95% stenosis proximal small Cx and 50-60% stenosis proximal LAD-per cath report Previously on aspirin, unclear if he still should be taking this but not on medication list Not on statin - reportedly refused this Not on beta-rosy due to bradycardia (3) Benign localized hyperplasia of prostate without urinary obstruction: Plan: Unclear if still taking tamsulosin, will have to clarify with patient and his son tomorrow (4) Type 2 diabetes mellitus: Plan: On no medications for this. Current HbA1C would be innacutate in setting of hemolytic anemia. Previously 7.4 in November 2021. Not on any medication for this. 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 Patient is French speaking and history taken patient using utility mechanic supervisor and from son at bedside who the patient independently gave person to translate. He reports just feeling weak but no chest pain, shortness of breath or dizziness. No hemoptysis, hematemesis, hematuria, melena or bright red blood in stool. I discussed the case with Dr Cartwright earlier in the day and diagnosis of hemolytic anemia already made with initial improvement with prednisone but now getting worse as prednisone was tapered. Requesting Solu-Medrol 1mg/kg daily and 2 units of packed RBCs. Will repeat hemoglobin following this and discuss further transfusions in the morning if necessary. Allergies Allergy/AdvReac Type Severity Reaction Status Date / Time No Known Drug Allergies Allergy Unknown none Verified 10/18/22 09:49 Home Medications Medication Instructions Recorded Confirmed Type timolol maleate 0.5 % eye gel 1 drp OPB DAILY 12/13/21 10/21/22 History forming solution (Timoptic-XE) clotrimazole-betamethasone 1 1 applic topical .qhs #45 grams 07/08/22 10/21/22 Rx %-0.05 % topical cream loperamide 2 mg capsule 2 mg PO Q6H PRN Diarrhea 10/03/22 10/21/22 History phenazopyridine 95 mg tablet (Azo 95 mg PO TID PRN Pain 10/03/22 10/21/22 History Urinary Pain Relief) tramadol 50 mg tablet 50 mg PO Q8H PRN pain #60 tabs 10/18/22 10/21/22 Rx silver sulfadiazine 1 % topical 1 applic topical BID Radiation 11/01/22 Rx cream (Silvadene) dermatitis #85 grams Past Med/Surg History Medical History Abscess Accelerated essential hypertension Anemia Ascending aorta dilation Benign prostatic hyperplasia with urinary obstruction Cardiomyopathy Coronary artery disease Glaucoma Hearing impairment Hypertension Left ventricular diastolic dysfunction, NYHA class 1 Leukopenia Localized swelling of both lower legs Mitral regurgitation Penile cancer Penile mass Prediabetes Status post insertion of drug-eluting stent into left anterior descending (LAD) artery Tricuspid regurgitation Type 2 diabetes mellitus Venous insufficiency Surgical History History of cardiac cath History of mastoidectomy History of surgery Hx of cataract surgery Family History Mother Stroke Father No problems noted. Sister Cancer Daughter No problems noted. Daughter No problems noted. Daughter No problems noted. Son No problems noted. Son No problems noted. Son No problems noted. 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 Internship Required: Yes Beliefs That Will Affect Care: None marital status: Current Living Situation: Spouse Current Living Situation Comment: At home with spouse in 2 story apartment current occupational status: retired 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 Other Information That Helps Us Care for You: No Feels Safe at Home: Yes Safety Concerns: Feels Safe At This Time caffeine: Yes during the past year weight has: remained stable Seatbelt Use: always Assistive Devices: Denture - Upper, Denture - Lower and Hearing Aid - Right Review of Systems Review of Systems: All systems reviewed & are unremarkable except as noted in HPI & below Physical Exam Constitutional: WD/WN, vitals as above Eyes: + anicteric sclerae; normal pupil size Respiratory: normal respiratory effort, lungs clear to auscultation Cardiovascular: RRR, no murmur, no edema Gastrointestinal (Abdomen): normal bowel sounds, soft, nontender, no hepatosplenomegaly Musculoskeletal: no cyanosis or clubbing, extremities motor strength 5/5 Skin: no rashes, warm and dry Neurologic: moves all extremities and awake; not confused Code Status & VTE Plan Code Status Full VTE Prophylaxis Plan VTE Prophylaxis will be ordered: Yes PG Care Time/CCT Total # of Minutes Spent Total Time Spent with Patient: Total time spent is greater than 50% in coordination of care (as documented) at patient's floor/unit and/or counseling patient: Coding Level of Care Code 97075 INT INP/OBS CARE 3/75MIN Diagnoses Acute hemolytic anemia D59.9 Coronary artery disease I25.10 Benign localized hyperplasia of prostate without urinary obstruction N40.0 Type 2 diabetes mellitus E11.9 Penile cancer C60.9 Elevated transaminase level R74.01
[2022-11-01 20:05] LABS: Anion Gap 6 (3-11); BUN Creatinine Ratio 30.8 (10-20); Blood Urea Nitrogen 28 mg/dl (6-23); Calcium 8.1 mg/dl (8.5-10.1); Carbon Dioxide 23 mmol/L (21-32); Chloride 104 mmol/L (98-107); Est GFR (African American) 90.6 ml/min; Est GFR (Non-African American) 78.2 ml/min; Glucose 153 mg/dl (70-99(Fasting)); Potassium 4.1 mmol/L (3.5-5.1); Sodium 133 mmol/L (136-145)
[2022-11-01 20:09] LABS: Hemoglobin 6.2 g/dl (14.0-18.0); Mean Corpuscular Hemoglobin 30.1 pg (25.0-34.0); Mean Corpuscular Hgb Conc 32.6 g/dL (32.0-36.0); Mean Corpuscular Volume 92.2 fL (80.0-100.0); RDW Coefficient of Variation 16.3 % (11.5-14.5); RDW Standard Deviation 54.1 fL (36.4-46.3); Red Blood Count 2.06 M/uL (4.70-6.10)
[2022-11-01 20:11] LABS: Albumin Globulin Ratio 0.6 (0.9-2); Albumin Level 2.4 gm/dl (3.4-5.0); Alkaline Phosphatase 314 U/L (34-104); Bilirubin Direct 3.3 mg/dl (0-0.2); Globulin 3.9 gm/dl (2.5-4.0); Magnesium 2.1 mg/dl (1.7-2.4); Phosphorus 3.3 mg/dl (2.5-4.9); Total Protein 6.3 gm/dl (6.0-8.3)
[2022-11-01 20:15] LABS: INR 1.7 (0.9-1.1); Partial Thromboplastin Ratio 1.6; Partial Thromboplastin Time 43.3 Seconds (21.0-31.0); Prothrombin Time 17.3 Seconds (9.0-12.0)
[2022-11-01 20:26] LABS: Alanine Aminotransferase 1050 U/L (7-52); Aspartate Aminotransferase 1578 U/L (13-39)
[2022-11-01 20:42] LABS: Basophils # (auto) 0.02 K/uL (0-0.2); Basophils % (auto) 0.7 %; Echinocytes 1+; Eosinophils # (auto) 0.01 K/uL (0-0.50); Eosinophils % (auto) 0.3 %; Immature Granulocytes # (auto) 0.02 K/uL (0.01-0.20); Immature Granulocytes % (auto) 0.7 %; Lymphocytes # (auto) 0.62 K/uL (1.2-3.4); Lymphocytes % (auto) 20.7 %; Monocytes # (auto) 0.65 K/uL (0.11-0.59); Monocytes % (auto) 21.7 %; Neutrophils # (auto) 1.68 K/uL (1.40-6.50); Neutrophils % (auto) 55.9 %; Platelet Count 76 K/uL (130-400); Platelet Estimate Decreased (Normal)
[2022-11-01] MEDS ORDERED: ACETAMINOPHEN 325 MG TAB PO PRN (21:58)
[2022-11-01] MEDS: methylPREDNISolone 100 MG in SYRINGE 0 ML IV SCH (22:17)
[2022-11-02 07:29] LABS: Reticulocyte % 0.1 % (0.5-2.0)
--- NOTE | 2022-11-02 08:24 | Oncology Consultation ---
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 1. Regarding his severe anemia although LDH and haptoglobin are both suggestive of hemolysis, peripheral smear review did not show any evidence of spherocytes or schistocytes. Conjugated hyperbilirubinemia not also compatible with hemolysis. Also, Dhiraj test was negative and reticulocyte count is low which is not suggestive of hemolytic process. Anemia with inappropriate reticulocyte response is usually associated with nutritional deficiencies, medications, bone marrow infiltration by malignancy, bleeding or infection such as parvovirus. Nutritional labs including B12, iron and folate do not show deficiency state. He denies abnormal bleeding and CT imaging does not show any evidence to suggest bleeding. It would be worthwhile to obtain stool to rule out occult bleeding. It is certainly possible the severe anemia with inappropriate reticulocyte response could be due to immunotherapy as this has been reported in several case studies. Treatment for this is usually high-dose steroids which he is currently on. Would recommend ruling out infections especially hepatitis and parvovirus. Transfuse with PRBC for hemoglobin less than 7.5. If anemia is due to immunotherapy, would expect response to steroids 2. Regarding his regarding hepatotoxicity, suspect that this is most likely due to immunotherapy given conjugated hyperbilirubinemia, significantly elevated ALT, AST. ALT/AST seems to have stabilized over the last 24 hours. Recommend continuing with methylprednisolone 1 mg/kg/day. If LFTs do not improve over the next few days despite being on high-dose steroids, would recommend considering liver biopsy and trial of CellCept for grade 4 ICI hepatotoxicity. Consider G.I evaluation if LFTs do not improve with steroids 3. Based on recently obtained CT CAP, his recurrent penile carcinoma appears to be responding to treatment.Given grade 4 hepatotoxicity, will likely discontinue further immunotherapy treatment. Above plan discussed with patient's son. Thank you for this consult. Oncology will continue following patient while in the hospital. Please feel free to call if you have any further questions History of Present Illness Reason for Consultation: Anemia and transaminitis In the setting of immunotherapy use Attending Physician: Gonsalo Medina MD History of Present Illness Mr. Milton is an 81-year-old gentleman of [place] descent with history of early stage IIIb squamous cell carcinoma of the penis for which he is s/p partial penectomy on 12/13/2021. He was diagnosed with lymph node recurrence around July, for which he received radiation therapy. Was subsequently started on immunotherapy treatment with pembrolizumab on 08/23/2022. He received cycle 2 of pembrolizumab on 09/23/2022. Outpatient labs obtained on 10/19/2022 revealed significant anemia with hemoglobin of 8.1, leukopenia with white cell count of 2.64. Labs also revealed elevated LFTs with AST of 330 and ALT of 275. Due to concern for immunotherapy related hepatotoxicity patient was started on prednisone 100 mg p.o. daily which was gradually tapered weekly by 10 mg every week. He presented for outpatient labs yesterday and was found to have significant anemia with hemoglobin of 6.3, hematocrit of 18.6 with significantly elevated LFTs including bilirubin of 6.1, ALT 1102, AST 1648, alkaline phosphatase of 331. 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 He was started on methylprednisolone 1 mg/kg/day yesterday. Also received 2 units of PRBC transfusion. Patient states that he is doing a lot better today with improvement in fatigue and shortness of breath. Allergies Allergy/AdvReac Type Severity Reaction Status Date / Time No Known Drug Allergies Allergy Unknown none Verified 10/18/22 09:49 Home Medications Medication Instructions Recorded Confirmed Type timolol maleate 0.5 % eye gel 1 drp OPB DAILY 12/13/21 10/21/22 History forming solution (Timoptic-XE) clotrimazole-betamethasone 1 1 applic topical .qhs #45 grams 07/08/22 10/21/22 Rx %-0.05 % topical cream loperamide 2 mg capsule 2 mg PO Q6H PRN Diarrhea 10/03/22 10/21/22 History phenazopyridine 95 mg tablet (Azo 95 mg PO TID PRN Pain 10/03/22 10/21/22 History Urinary Pain Relief) tramadol 50 mg tablet 50 mg PO Q8H PRN pain #60 tabs 10/18/22 10/21/22 Rx silver sulfadiazine 1 % topical 1 applic topical BID Radiation 11/01/22 Rx cream (Silvadene) dermatitis #85 grams Patient History Medical History Abscess Accelerated essential hypertension Anemia Ascending aorta dilation Benign prostatic hyperplasia with urinary obstruction Cardiomyopathy Coronary artery disease Glaucoma Hearing impairment Hypertension Left ventricular diastolic dysfunction, NYHA class 1 Leukopenia Localized swelling of both lower legs Mitral regurgitation Penile cancer Penile mass Prediabetes Status post insertion of drug-eluting stent into left anterior descending (LAD) artery Tricuspid regurgitation Type 2 diabetes mellitus Venous insufficiency Surgical History History of cardiac cath History of mastoidectomy History of surgery Hx of cataract surgery Family History Mother Stroke Father No problems noted. Sister Cancer Daughter No problems noted. Daughter No problems noted. Daughter No problems noted. Son No problems noted. Son No problems noted. Son No problems noted. Other No family history of adverse response to anesthesia Social History Smoking Status: Never smoker Second Hand Exposure: No; Do You Dip or Chew Tobacco: No; Tobacco Cessation Education Requested by Patient: No Hx Alcohol Use: No Hx Substance Use: No Preferred Language: Macedonian Communication Ability: Effective Visual Impairment: No Limitations Hearing Ability: Normal Wreath Inspector Required: Yes Beliefs That Will Affect Care: None marital status: Current Living Situation: Alone Current Living Situation Comment: At home with spouse in 2 story apartment current occupational status: retired 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 Other Information That Helps Us Care for You: No Feels Safe at Home: Yes Safety Concerns: Feels Safe At This Time caffeine: Yes during the past year weight has: remained stable Seatbelt Use: always Assistive Devices: None Review of Systems Review of Systems: All systems reviewed & are unremarkable except as noted in Subjective Physical Exam Constitutional: WD/WN, vitals as above Eyes: Scleral icterus Respiratory: normal respiratory effort, lungs clear to auscultation Cardiovascular: RRR, no murmur, no edema Gastrointestinal (Abdomen): normal bowel sounds, soft, nontender, no hepatosplenomegaly Lymphatic: no cervical or axillary lymphadenopathy Results & Data ([facility]) Vital Signs (Past 12 Hours) Vital Signs Temp Pulse Pulse Resp BP BP Pulse Ox 11/02/22 07:24 36.4 C L 11/02/22 07:16 53 L 18 128/94 94 11/02/22 06:03 36.3 C L 56 L 19 146/72 H 94 11/02/22 04:55 36.4 C L 55 L 18 139/73 94 11/02/22 03:55 36.5 C 60 135/72 11/02/22 04:00 36.5 C 60 18 130/69 94 11/02/22 03:24 36.6 C 60 18 145/72 H 95 11/02/22 03:10 36.5 C 63 19 146/71 H 95 11/02/22 02:54 36.4 C L 61 20 148/71 H 94 11/02/22 02:40 36.4 C L 72 20 153/73 H 94 11/02/22 02:33 36.9 C 62 18 131/68 97 11/02/22 02:05 37.1 C 63 18 143/72 H 94 11/02/22 01:05 37.1 C 66 18 145/69 H 94 11/02/22 00:05 37.1 C 79 18 129/67 93 11/01/22 23:35 37.3 C 72 18 113/67 93 11/01/22 23:20 37.8 C H 78 18 117/64 92 11/01/22 23:01 37.6 C H 76 18 121/62 91 11/01/22 22:47 37.6 C H 11/01/22 22:16 37.3 C 11/01/22 21:29 37.8 C H 11/01/22 20:27 37.3 C 73 17 151/71 H 91 O2 Del Method 11/02/22 07:24 11/02/22 07:16 Room Air 11/02/22 06:03 11/02/22 04:55 11/02/22 03:55 11/02/22 04:00 11/02/22 03:24 11/02/22 03:10 11/02/22 02:54 11/02/22 02:40 11/02/22 02:33 11/02/22 02:05 11/02/22 01:05 11/02/22 00:05 11/01/22 23:35 11/01/22 23:20 11/01/22 23:01 11/01/22 22:47 11/01/22 22:16 11/01/22 21:29 11/01/22 20:27 Room Air
--- NOTE | 2022-11-02 08:39 | Hospitalist Progress Note ---
Date of Service November 02, 2022 Assessment & Plan (1) Acute hemolytic anemia: Plan: 81-year-old male presenting from clinic following abnormal labs, most notably hemoglobin of 6.3. 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 Now admitted to the hospital for further management. Hemolytic anemia -Hemoglobin 6.3 on admission. Now status post transfusion of pRBC x2 units. -Leukopenia also present on admission. However, from review of prior admissions, this appears to be a chronic issue. -Dhiraj test negative, vitamin B12 levels within normal limits, folate levels normal, peripheral smear negative for evidence of spherocytes or schistocytes. -Total bilirubin elevated at 6.3, conjugated bilirubin 3.0. Significant transaminitis, LFTs (AST 1391, ALT 1013, alkaline phosphatase 311). 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 -Heme-onc consulted: Given low reticulocyte response, likely that patient's presentation secondary to bone marrow infiltration (malignancy, bleeding, infection) vs immunotherapy response. * Continue high-dose steroid therapy: IV Solu-Medrol 1 mg/kg, likely x3 weeks. * Awaiting lab results: Acute hepatitis panel, Parvovirus B19. * Trend LFTs. Consider liver biopsy, trial of CellCept if transaminases fail to improve despite high-dose steroid therapy. 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 * Continue high-dose IV steroids as above. * Trend LFTs, transaminases, bilirubin. Consider liver biopsy, CellCept if aforementioned labs fail to show improvement in the coming days. Hyperglycemia/type 2 diabetes -Last hemoglobin in November of last year shows A1c of 7.4. Review of PCP notes shows patient has declined further repeat testing since then. PCP is managing as chronic DM2. Does not take medication. * SSI insulin. Will assess basal insulin need tomorrow. * Trend glucose Abdominal fold rash -Appears fungal. * Nystatin powder twice daily as needed. Lower extremity edema -Bilateral, 1+ to the knees. -Patient uses leg massager at home, which, he reports, helps him. * SCDs nightly Chronic medical problems -CAD (s/p stent placed 2016), HTN: Patient has refused statin for elevated cholesterol; no longer on metoprolol due to bradycardia. BP appears reasonably well controlled this time. Monitor. -BPH: Patient denies urinary retention, or urinary frequency, or incomplete voiding. Continue home Azo. -Penile cancer (s/p partial penectomy): S/p targeted radiation therapy, completed half of required sessions as of 09/27/2022. Not currently receiving radiation therapy. Code: Full code Dispo: Med-Surg FEN/GI: Carb consistent DVT Prophylaxis: SCDs. No chemoprophylaxis due to anemia, recent transfusion, concern for occult bleeding. PT/OT: No Consults: Hematology (2) Coronary artery disease: (3) Benign localized hyperplasia of prostate without urinary obstruction: (4) Type 2 diabetes mellitus: (5) Penile cancer: (6) Elevated transaminase level: Admission and Anticipated Discharge Date Admission Date: November 01, 2022 Supervising Physician Co-Signing Physician Notes I personally examined the patient and verified all cox points of history and exam, discussed case, and agree with decision making with Dr Person Main complaint for me is left groin rash. He has been using a cream and covering it with toilet paper at home. Case discussed with hematology/oncologytreatment greatly appreciated. CBC, CMP reviewed. In general he is awake and alert pleasant no distress. HEENT normocephalic atraumatic mucous membranes moist. Breathing unlabored no accessory muscle use good effort. Skin shows left groin with rash consistent with intertrigo, as well as an area that appears to be fairly superficial but widely ulcerated. The area was covered with cream and matted toilet paper. Neuro without focal deficits. Anemiainitially thought to be hemolytic. May be marrow suppression. Greatly appreciate hematology input. Hemodynamically stable. Transaminitislevel of elevation certainly consistent with drug-induced liver injury. On methylprednisolone. INR and elevated bilirubin concerning, but overall situation appears to have hopefully plateauedcontinue corticosteroids. Give vitamin K to follow for correction of INR. Otherwise as above Subjective Patient is standing about to go to the restroom on arrival. Son, who speaks Peruvian, is in the room with him. Conducted interview with Peruvian scaler (Sung #[id number]) present in the room. With scaler supervising, son translates for the patient. No acute events overnight. Corroborates HPI. This morning, he reports significant improvement in energy, denies lethargy. Further denies dizziness, headache, nausea, vomiting, or shortness of breath. Witnessed patient ambulating to and from the restroom without assistance. Review of Systems Review of Systems: All systems reviewed & are unremarkable except as noted in HPI & below Physical Exam Physical Exam: General: No acute distress HEENT: PERRLA. Normal conjunctiva, anicteric sclera. Oropharynx normal. Respiratory: Normal respiratory effort, CTABL. Cardiovascular: RRR without murmurs, gallops, or rubs. Bilateral LE 1+ pitting edema to the knees. GI: Soft abdomen with normal bowel sounds heard on auscultation. Nontender x4 quadrants Skin: Mild erythematous rash with whitish discharge at left lower quadrant of abdomen, extending inferiorly to the inguinal fold on the left and upper thigh. Neuro: Alert and oriented x3. Results & Data Results & Data ([facility]) Vital Signs (Past 12 Hours) Vital Signs Temp Pulse Pulse Resp BP BP Pulse Ox 11/02/22 07:24 36.4 C L 11/02/22 07:16 53 L 18 128/94 94 11/02/22 06:03 36.3 C L 56 L 19 146/72 H 94 11/02/22 04:55 36.4 C L 55 L 18 139/73 94 11/02/22 03:55 36.5 C 60 135/72 11/02/22 04:00 36.5 C 60 18 130/69 94 11/02/22 03:24 36.6 C 60 18 145/72 H 95 11/02/22 03:10 36.5 C 63 19 146/71 H 95 11/02/22 02:54 36.4 C L 61 20 148/71 H 94 11/02/22 02:40 36.4 C L 72 20 153/73 H 94 11/02/22 02:33 36.9 C 62 18 131/68 97 11/02/22 02:05 37.1 C 63 18 143/72 H 94 11/02/22 01:05 37.1 C 66 18 145/69 H 94 11/02/22 00:05 37.1 C 79 18 129/67 93 11/01/22 23:35 37.3 C 72 18 113/67 93 11/01/22 23:20 37.8 C H 78 18 117/64 92 11/01/22 23:01 37.6 C H 76 18 121/62 91 11/01/22 22:47 37.6 C H 11/01/22 22:16 37.3 C 11/01/22 21:29 37.8 C H O2 Del Method 11/02/22 07:24 11/02/22 07:16 Room Air 11/02/22 06:03 11/02/22 04:55 11/02/22 03:55 11/02/22 04:00 11/02/22 03:24 11/02/22 03:10 11/02/22 02:54 11/02/22 02:40 11/02/22 02:33 11/02/22 02:05 11/02/22 01:05 11/02/22 00:05 11/01/22 23:35 11/01/22 23:20 11/01/22 23:01 11/01/22 22:47 11/01/22 22:16 11/01/22 21:29 Resident Activity Tracking Resident Involvement: Resident Care Provided Care Provided: Adult Hospital Medicine
[2022-11-02] MEDS ORDERED: GLUCAGON FOR INJ 1 MG VIAL SQ PRN (08:53)
[2022-11-02] MEDS ORDERED: GLUCOSE 40% GEL 15 GM TUBE PO PRN (08:53)
[2022-11-02] MEDS ORDERED: DEXTROSE 50% 50 ML SYRINGE IV PRN (08:53)
[2022-11-02] MEDS ORDERED: GLUCOSE 10 TAB/TUBE PO PRN (08:53)
[2022-11-02] MEDS ORDERED: CARBOHYDRATES FOR HYPOGLYCEMIA PO PRN (08:53)
[2022-11-02] MEDS: PANTOprazole 40 MG TAB PO SCH ×2 (09:18→20:55)
[2022-11-02 10:43] LABS: BUN Creatinine Ratio 37.5 (10-20); Creatinine Clr Calc Pharmacy 78.4 ml/min; Est GFR (African American) 96.4 ml/min; Est GFR (Non-African American) 83.2 ml/min; Potassium 4.8 mmol/L (3.5-5.1)
[2022-11-02 10:57] LABS: Fibrinogen 100 mg/dl (184-400)
[2022-11-02 10:59] LABS: INR 1.8 (0.9-1.1); Prothrombin Time 18.3 Seconds (9.0-12.0)
[2022-11-02 11:03] LABS: Vitamin B12 > 1500 pg/ml (180-914)
[2022-11-02 11:33] LABS: Albumin Level 2.4 gm/dl (3.4-5.0); Bilirubin Direct 4.1 mg/dl (0-0.2); Bilirubin,Total 7.1 mg/dl (0.2-1.0); Total Protein 6.2 gm/dl (6.0-8.3)
[2022-11-02] MEDS ORDERED: OPTIRAY 350 100ml IV ONE (11:52)
[2022-11-02 11:55] LABS: Eosinophils # (auto) 0.01 K/uL (0-0.50); Eosinophils % (auto) 0.5 %; Hematocrit (blood only) 25.6 % (42.0-52.0); Hemoglobin 8.8 g/dl (14.0-18.0); Immature Granulocytes # (auto) 0.01 K/uL (0.01-0.20); Immature Granulocytes % (auto) 0.5 %; Lymphocytes # (auto) 0.34 K/uL (1.2-3.4); Lymphocytes % (auto) 15.5 %; Mean Corpuscular Hemoglobin 30.1 pg (25.0-34.0); Mean Corpuscular Hgb Conc 34.4 g/dL (32.0-36.0); Mean Corpuscular Volume 87.7 fL (80.0-100.0); Mean Platelet Volume 11.5 fL (9.4-12.4); Monocytes # (auto) 0.09 K/uL (0.11-0.59); Monocytes % (auto) 4.1 %; Neutrophils # (auto) 1.75 K/uL (1.40-6.50); Neutrophils % (auto) 79.4 %; Platelet Count 136 K/uL (130-400); RDW Coefficient of Variation 15.1 % (11.5-14.5); Red Blood Count 2.92 M/uL (4.70-6.10)
--- NOTE | 2022-11-02 12:21 | CT Scan Report ---
CT SCAN OF THE CHEST, ABDOMEN, AND PELVIS WITH IV CONTRAST CLINICAL HISTORY: Penile cancer. Elevated hepatic transaminases. COMPARISON STUDY: PET CT dated 08/24/2022. CT scan of the chest, abdomen, and pelvis dated 06/13/2022. TECHNIQUE: Following the IV administration of 91 of Optiray 350, CT scan of the chest, abdomen, and p agatha was performed from the thoracic inlet to the proximal femora. Images are reviewed in the axial, sagittal, and coronal planes. IV contrast was administered without complication. Oral contrast was u tilized. A dose lowering technique was utilized adhering to the principles of ALARA. CT DOSE: 1631.44 mGy.cm FINDINGS: CHEST: Thyroid: Normal in size and heterogeneous in attenuation. Thoracic aorta: There is atherosclerotic calcification of the thoracic aorta, which is normal in bhargav rj and demonstrates standard 3-vessel arch anatomy. No dissection is seen. Pulmonary vasculature: The pulmonary trunk is normal in caliber. There are no filling defects identif ied in the central pulmonary vessels to indicate pulmonary embolus. Note that this examination was no t protocoled for evaluation of the pulmonary arteries. Heart: The heart is enlargement and without pericardial effusion. The coronary arteries are densely c alcified. Lungs and pleural spaces: Evaluation of the lung parenchyma is degraded by motion artifact. There are small pleural effusions with dependent atelectasis. No airspace consolidation is seen typical for pn eumonia. The trachea and central airways are clear. Mediastinum: There are calcified subcarinal lymph nodes. No pathologically enlarged mediastinal lymph nodes are seen. Aileen: There are calcified left hilar nodes. No hilar adenopathy is identified. Axillae: There is no axillary lymphadenopathy. Bony thorax: The skeletal structures are osteopenic. Mild degenerative change is noted in the thoraci c spine. A hemangioma is noted in the body of T11. No lytic or blastic lesions are identified. ABDOMEN AND PELVIS: Liver: The contrast-enhanced liver is normal in size heterogeneous in attenuation. Morphology is cirr hotic, with nodularity of the hepatic surface contour. There is no intrahepatic biliary ductal dilata tion. The hepatic veins and portal veins are patent. There are calcified hepatic granulomas. Gallbladder: Cholelithiasis is suspected. The gallbladder is contracted and otherwise grossly unremar kable. Spleen: Top normal in size and homogeneous in attenuation. Pancreas: Moderately atrophic and grossly unremarkable. Adrenal glands: Unremarkable. Kidneys: The contrast enhanced kidneys are normal in size and without hydronephrosis. The kidneys enh ance symmetrically. A 2.4 cm cyst is seen in the left upper pole. A subcentimeter cortical hypodensit y in the right kidney also likely represent a cyst but is too small for definitive characterization. Abdominal vasculature: The abdominal aorta is normal in course and caliber noting advanced atheroscle rotic calcification. Stomach and bowel: A small hiatal hernia is noted. There is no bowel obstruction. Enteric contrast re aches the distal small bowel. The appendix is not visualized. Peritoneum: There is a small volume of abdominopelvic ascites. This is new from previous, and the gre atest amount of fluid seen around the liver. No intraperitoneal free air is identified. There is a fa t-containing umbilical hernia. Lymphadenopathy: Inguinal lymphadenopathy has significantly decreased in attenuation an enhancement a s compared to 06/13/2022. This likely represents treatment response. A right inguinal node on image # [id number] measures 1.9 x 1.3 cm and a left inguinal node on image #389 measures 4.6 x 2.2 cm. No pathologi safia enlarged lymph nodes are seen in the upper abdomen, retroperitoneum, iliac chain, or pelvic martine ewall. Pelvic viscera: There is evidence of penile resection. There is a 1.7 cm low-attenuation/cystic focus in the base of the penis seen on image #460 and the site of the previously characterized enhancing l esion. There is heterogeneity at the site of the more peripheral enhancing lesion on image #480. The lack of enhancement likely represent positive treatment response. The prostate gland is enlarged and heterogeneous noting median lobe hypertrophy. The bladder is decompressed and not well evaluated. Skeletal structures: The skeletal structures are osteopenic. Mild to moderate lumbosacral spondylosis is observed. No lytic or blastic lesions are seen. 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 IMPRESSION: 1. There has been positive response to treatment when compared to recent prior examination. Penile le sions described previously appear necrotic with no significant enhancement, and bilateral inguinal ly mphadenopathy has also decreased in size, attenuation, and enhancement. 2. There is no evidence of progressive metastatic disease in the chest, abdomen, or pelvis. 3. Cardiomegaly and small pleural effusions. These are new from previous. 4. The liver is cirrhotic in morphology and heterogeneous in attenuation. 5. There is a small volume of abdominopelvic ascites which is new from previous. 6. No bowel obstruction. 7. There is no airspace consolidation typical for pneumonia. 8. Prostatomegaly. 9. Additional findings as above. ACT 112: Negative or not required by law. Electronically signed by: Scout Barajas M.D. 11/02/2022 12:19 PM
[2022-11-02] MEDS: INSULIN ASPART PER UNIT CHARGE SC SCH ×3 (12:50→21:14)
[2022-11-02] MEDS ORDERED: NYSTATIN POWDER 15GM BTL EXT PRN (18:02)
[2022-11-02] MEDS ORDERED: PHYTONADIONE 5 MG in DEXTROSE 5% 50 ML IV ONE (18:40)
--- NOTE | 2022-11-02 18:40 | Billing Data ---
Date of Service November 02, 2022 Coding Level of Care Code 07737 SUB INP/OBS CARE 3MIN
[2022-11-02] MEDS: NYSTATIN POWDER 15GM BTL EXT SCH ×2 (20:59→22:05)
[2022-11-02] MEDS: methylPREDNISolone 100 MG in SYRINGE 0 ML IV SCH (22:06)
[2022-11-03] MEDS ORDERED: Flu Vaccine-High Dose (Fluzone-HD) PF 65+ 0.7mL SYR IM ONE (02:15)
[2022-11-03 07:28] LABS: Hematocrit (blood only) 24.6 % (42.0-52.0); Hemoglobin 8.7 g/dl (14.0-18.0); Immature Granulocytes # (auto) 0.02 K/uL (0.01-0.20); Immature Granulocytes % (auto) 0.4 %; Lymphocytes # (auto) 0.36 K/uL (1.2-3.4); Lymphocytes % (auto) 7.6 %; Mean Corpuscular Hemoglobin 30.1 pg (25.0-34.0); Mean Corpuscular Hgb Conc 35.4 g/dL (32.0-36.0); Mean Corpuscular Volume 85.1 fL (80.0-100.0); Mean Platelet Volume 11.2 fL (9.4-12.4); Monocytes # (auto) 0.22 K/uL (0.11-0.59); Monocytes % (auto) 4.7 %; Neutrophils # (auto) 4.11 K/uL (1.40-6.50); Neutrophils % (auto) 87.3 %; Platelet Count 130 K/uL (130-400); RDW Coefficient of Variation 14.6 % (11.5-14.5); RDW Standard Deviation 45.2 fL (36.4-46.3); Red Blood Count 2.89 M/uL (4.70-6.10); White Blood Count 4.71 K/ul (4.8-10.8)
[2022-11-03 07:43] LABS: BUN Creatinine Ratio 36.5 (10-20); Calcium 8.2 mg/dl (8.5-10.1); Creatinine Clr Calc Pharmacy 73.8 ml/min; Est GFR (Non-African American) 81.1 ml/min; Potassium 4.7 mmol/L (3.5-5.1)
[2022-11-03 07:49] LABS: Albumin Globulin Ratio 0.6 (0.9-2); Albumin Level 2.3 gm/dl (3.4-5.0); Bilirubin,Total 6.6 mg/dl (0.2-1.0); Globulin 3.7 gm/dl (2.5-4.0); Magnesium 2.2 mg/dl (1.7-2.4); Phosphorus 3.9 mg/dl (2.5-4.9)
[2022-11-03 08:04] LABS: INR 1.7 (0.9-1.1); Prothrombin Time 17.9 Seconds (9.0-12.0)
--- NOTE | 2022-11-03 08:23 | Hematology/Oncology Prog Note ---
Date of Service November 03, 2022 Assessment & Plan (1) Anemia: (2) Elevated transaminase level: (3) Penile cancer: Plan -Good response to methylprednisolone noted with improvement in LFTs and stable hemoglobin -Continue with current dose of methylprednisolone 1 mg/kg/day -No indication at this time for CellCept/liver biopsy given improvement in LFTs -If labs continue to improve, anticipate that he should be able to go home in the next couple of days on prednisone 1 mg/kg/day Admission and Anticipated Discharge Date Admission Date: November 01, 2022 Subjective No new complaints Review of Systems Review of Systems: All systems reviewed & are unremarkable except as noted in Subjective Results & Data Vital Signs (Past 12 Hours) Vital Signs Temp Pulse Resp BP Pulse Ox O2 Del Method 11/03/22 07:23 36.5 C 56 L 20 168/70 H 95 Room Air 11/02/22 21:48 36.5 C 55 L 18 150/73 H 95 Room Air 11/02/22 21:25 36.5 C 64 133/63 91 Room Air 11/02/22 21:06 36.4 C L 55 L 17 137/67 93 Room Air 11/02/22 20:46 36.4 C L 56 L 17 146/75 H 92 Room Air
[2022-11-03] MEDS: INSULIN ASPART PER UNIT CHARGE SC SCH ×4 (08:53→20:53)
--- NOTE | 2022-11-03 08:55 | Medical Student Progress Note ---
Date of Service November 03, 2022 Assessment & Plan (1) Acute hemolytic anemia: (2) Elevated transaminase level: (3) Penile cancer: (4) Hearing impairment: Contralateral hearing status: unspecified Hearing loss type: other Laterality: left Qualified Code(s): H91.8X2 - Other specified hearing loss, left ear (5) Hypertension: Plan 1. 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 Initial positive clinical response to steroids. Presented with hemoglobin 6.3, s/p transfusion of pRBC x2 units. - Leukopenia present on admission, likely chronic. - Labs: Dhiraj test negative, vitamin B12 levels within normal limits, folate levels normal, peripheral smear negative for spherocytes or schistocytes. - Elevated total bilirubin: 6.3; conjugated bilirubin 3.0. Significant transaminitis, LFTs (AST 1391, ALT 1013, alkaline phosphatase 311). - heme-onc (Dr. Cartwright) consulted, insights appreciated - per clothes ironer note, low reticulocyte response indicates patient's presentation likely secondary to bone marrow infiltration (malignancy, bleeding, infection) vs immunotherapy response. Good response to methylprednisolone, improved LFTs and stable hemoglobin. No indication for CellCept/liver biopsy. - Pending lab results: Acute hepatitis panel, Parvovirus B19. - Change high-dose steroid therapy: methylprednisolone to prednisone 1 mg/kg/day, one dose daily - If labs continue to improve, anticipate d/c in next few days on prednisone 1 mg/kg/day 2. L inguinal wound - improving, stable - appears fungal, photo available in chart - improved appearance from yesterday - wound nurse following & much appreciated - continue Nystatin powder 2x daily 3. Hyperglycemia/T2DM - monitoring, stable - Glucose has been consistently elevated since first data point in Jul 2018 (112). In the past 2 weeks, glucose has been consistently high: 156, 176, 166, 153, 231, 202, 278 today. High-dose steroids likely playing a role. - Last hemoglobin in November of last year shows A1c of 7.4. Review of PCP notes shows patient has declined further repeat testing since then and does not take medication. - Start 20 Lantus (long-acting insulin) - Continue sub-Q insulin at carb ratio 1:10 - Continue patient and family education re: diabetes - on d/c, may benefit from metformin 4. 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 - LFTs: ALT trending high: 1102 (on 11/01) --> 1050 (11/01) -->1013 (11/02) --> 931 (11/03); AST trending high: 1648 (on 11/01) --> 1578 (11/01) --> 1391 (11/02) --> 1050 (11/03). - Total bilirubin trending high: 6.1 --> 6.0 (on 11/01) --> 7.1 (11/02) --> 6.6 (11/03). - Continue high-dose IV steroids as above. 5. Lower extremity edema - monitoring, stable - likely venous stasis - Bilateral, 1+ to the knees. - Patient uses leg massager at home, which, he reports, helps him. 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 Please stand/sit at patient's R side when asking any questions/sharing information. -CAD(s/p stent placed 2017),HTN: Patient has refused statin for elevated cholesterol; no longer on metoprolol due to bradycardia. BP appears reasonably well controlled this time. Monitor. -BPH: Patient denies urinary retention, or urinary frequency, or incomplete voiding. Continue home Azo. 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 Not currently receiving radiation therapy. Code:Full code Dispo:Med-Surg FEN/GI:Carb consistent DVT Prophylaxis:SCDs. No chemoprophylaxis due to anemia, recent transfusion, concern for occult bleeding. PT/OT:No Consults:Hematology (2) Coronary artery disease: (3) Benign localized hyperplasia of prostate without urinary obstruction: (4) Type 2 diabetes mellitus: (5) Penile cancer: (6) Elevated transaminase level: Admission and Anticipated Discharge Date Admission Date: November 01, 2022 Supervising Attestation I personally examined the patient and verified all cox points of history and exam, discussed case, and agree with decision making with Yissel Coppola and Dr Person Overall doing better. Wonders about going home. Groin rash being treated. Extensive discussions with patient, son, sales representative facility services, medical student who speaks fluent Bhutanese also revisited to try to cement patient education. In general he is awake and alert pleasant no distress. HEENT normocephalic atraumatic mucous membranes moist. Breathing unlabored no accessory muscle use good effort. Neuro without focal deficits. Anemiainitially thought to be hemolytic. May be marrow suppression. Greatly appreciate hematology input. continue steroids. Hemodynamically stable. Transaminitislevel of elevation certainly consistent with drug-induced liver injury. On methylprednisolone. INR and elevated bilirubin concerning, but overall situation appears to have hopefully plateauedcontinue corticosteroids. showing some improvement. 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 As patient hears best from his right ear, interpretation iPad was placed at right of patient's bedside. Essence Ko deaf interpreter #[id number], facilitated communication. Patient reports feeling OK this morning. He had breakfast and has been able to walk to/from the bathroom. This morning, his inguinal wound feels better. He reports nursing putting powder on it last night. Discussed the importance of light walking, patient reports understanding. Encouraged to walk hallways with son Ryan, or nurse this afternoon. This afternoon, was accompanied by (Zonia Monroy) and son Ryan. When Inpatient Medicine team visited, patient's son interpreted and then Bhutanese deaf interpreter Sung joined via iPad. Patient and family had questions about whether honey was allowed, given the patient's diabetes diagnosis. Review of Systems Review of Systems: See above for pertinent positives & negatives. A total of 10 systems reviewed and were otherwise negative. Physical Exam Physical Exam: General: No acute distress, pleasant, communicative HEENT: PERRLA. Normal conjunctiva, anicteric sclera. Oropharynx normal. Respiratory: Normal respiratory effort, some rales appreciated. Cardiovascular: RRR without murmurs, gallops, or rubs. Bilateral LE 1+ pitting edema to the knees. GI: Soft abdomen with normal bowel sounds heard on auscultation. Nontender x4 quadrants Skin: Mild erythematous wound with whitish discharge at left lower quadrant of abdomen, extending inferiorly to L inguinal fold. Neuro: Alert and oriented x3. Results & Data Vital Signs (Past 12 Hours) Vital Signs Temp Pulse Resp BP Pulse Ox O2 Del Method 11/03/22 07:23 36.5 C 56 L 20 168/70 H 95 Room Air 11/02/22 21:48 36.5 C 55 L 18 150/73 H 95 Room Air 11/02/22 21:25 36.5 C 64 133/63 91 Room Air 11/02/22 21:06 36.4 C L 55 L 17 137/67 93 Room Air
[2022-11-03] MEDS: NYSTATIN POWDER 15GM BTL EXT SCH ×4 (09:18→22:07)
[2022-11-03] MEDS: predniSONE 50 MG TAB PO SCH (15:51)
[2022-11-03] MEDS: LANTUS PER UNIT CHARGE SQ SCH (20:53)
[2022-11-04 07:25] LABS: Hematocrit (blood only) 23.6 % (42.0-52.0); Hemoglobin 8.4 g/dl (14.0-18.0); Immature Granulocytes # (auto) 0.03 K/uL (0.01-0.20); Immature Granulocytes % (auto) 0.5 %; Lymphocytes # (auto) 0.32 K/uL (1.2-3.4); Lymphocytes % (auto) 5.7 %; Mean Corpuscular Hemoglobin 29.7 pg (25.0-34.0); Mean Corpuscular Hgb Conc 35.6 g/dL (32.0-36.0); Mean Corpuscular Volume 83.4 fL (80.0-100.0); Mean Platelet Volume 11.2 fL (9.4-12.4); Monocytes # (auto) 0.23 K/uL (0.11-0.59); Monocytes % (auto) 4.1 %; Neutrophils # (auto) 5.04 K/uL (1.40-6.50); Neutrophils % (auto) 89.7 %; Platelet Count 137 K/uL (130-400); RDW Coefficient of Variation 15.1 % (11.5-14.5); Red Blood Count 2.83 M/uL (4.70-6.10); White Blood Count 5.62 K/ul (4.8-10.8)
[2022-11-04 07:47] LABS: BUN Creatinine Ratio 38.8 (10-20); Calcium 8.4 mg/dl (8.5-10.1); Creatinine Clr Calc Pharmacy 78.4 ml/min; Est GFR (African American) 96.4 ml/min; Est GFR (Non-African American) 83.2 ml/min; Potassium 4.8 mmol/L (3.5-5.1)
[2022-11-04 08:03] LABS: Albumin Globulin Ratio 0.7 (0.9-2); Albumin Level 2.3 gm/dl (3.4-5.0); Bilirubin,Total 6.4 mg/dl (0.2-1.0); Globulin 3.5 gm/dl (2.5-4.0); Magnesium 2.1 mg/dl (1.7-2.4); Phosphorus 3.9 mg/dl (2.5-4.9); Total Protein 5.8 gm/dl (6.0-8.3)
[2022-11-04] MEDS: predniSONE 50 MG TAB PO SCH (08:44)
[2022-11-04] MEDS: NYSTATIN POWDER 15GM BTL EXT SCH ×4 (08:44→21:18)
--- NOTE | 2022-11-04 08:59 | Medical Student Progress Note ---
Date of Service November 04, 2022 Assessment & Plan (1) Acute hemolytic anemia: (2) Elevated transaminase level: (3) Penile cancer: (4) Hearing impairment: Contralateral hearing status: unspecified Hearing loss type: other Laterality: left Qualified Code(s): H91.8X2 - Other specified hearing loss, left ear (5) Hypertension: Plan 1. 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 - Leukopenia present on admission, likely chronic. - Labs: Dhiraj test negative, vitamin B12 levels within normal limits, folate levels normal, peripheral smear negative for spherocytes or schistocytes. - Elevated total bilirubin: 6.3; conjugated bilirubin 3.0. Significant transaminitis, LFTs (AST 1391, ALT 1013, alkaline phosphatase 311). - Pending lab results: Acute hepatitis panel, Parvovirus B19. - heme-onc (Dr. Cartwright) consulted: low reticulocyte response indicates patient's presentation likely secondary to bone marrow infiltration (malignancy, bleeding, infection) vs immunotherapy response. Good response to methylprednisolone, improved LFTs and stable hemoglobin. No indication for CellCept/liver biopsy. - Continue prednisone 1 mg/kg/day, one dose daily - If labs continue to improve, anticipate d/c in next few days on prednisone 1 mg/kg/day 2. L inguinal wound - improving, stable - appears fungal, photo available in chart - appearance continuing to improve - wound nurse following & much appreciated 3. Hyperglycemia/T2DM - monitoring, stable - Glucose has been consistently elevated since first data point in Jul 2018 (112). In the past 2 weeks, glucose has been consistently high: 156, 176, 166, 153, 231, 202, 278. Improving with new insulin regimen. High-dose steroids likely playing a role. - Last hemoglobin in November of last year shows A1c of 7.4. Review of PCP notes shows patient has declined further repeat testing since then and does not take medication. - Continue 20 Lantus (long-acting insulin), and sub-Q insulin at carb ratio 1:10 - Continue patient and family education re: diabetes - on d/c, may benefit from metformin 4. 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 Level of elevation consistent with drug-induced liver injury. - LFTs improving: ALT and AST decreasing on daily checks. From 1102 and 1650 respectively. - Total bilirubin trending high: 6.1 --> 6.0 (on 11/01) --> 7.1 (11/02) --> 6.6 (11/03). - INR and elevated bilirubin concerning, but situation appears to have plateaued - Continue high-dose IV steroids as above 5. Lower extremity edema - monitoring, stable - likely venous stasis - Bilateral, 1+ to the knees. - Patient uses leg massager at home, which, he reports, helps him. 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 Please stand/sit at patient's R side when asking any questions/sharing information. -CAD(s/p stent placed 2016),HTN: Patient has refused statin for elevated cholesterol; no longer on metoprolol due to bradycardia. BP appears reasonably well controlled this time. Monitor. -BPH: Patient denies urinary retention, or urinary frequency, or incomplete voiding. Continue home Azo. 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 Not currently receiving radiation therapy. Code:Full code Dispo:Med-Surg FEN/GI:Carb consistent DVT Prophylaxis:SCDs. No chemoprophylaxis due to anemia, recent transfusion, concern for occult bleeding. PT/OT:No Consults:Hematology (2) Coronary artery disease: (3) Benign localized hyperplasia of prostate without urinary obstruction: (4) Type 2 diabetes mellitus: (5) Penile cancer: (6) Elevated transaminase level: Admission and Anticipated Discharge Date Admission Date: November 01, 2022 Supervising Attestation I personally examined the patient and verified all cox points of history and exam, discussed case, and agree with decision making with Yissel Coppola and Dr Maddox Overall doing better. Wonders about going home again. discussed progress and plan. hopefully home soon. utilized medical interpretor In general he is awake and alert pleasant no distress. HEENT normocephalic atraumatic mucous membranes moist. Breathing unlabored no accessory muscle use good effort. Neuro without focal deficits. CBC and CMP reviewed. Anemiainitially thought to be hemolytic. May be marrow suppression. Greatly appreciate hematology input. continue steroids. Hemodynamically stable. CBC stable. Transaminitislevel of elevation certainly consistent with drug-induced liver injury. Overall picture showing slow improvement on high-dose corticosteroids. 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 During our visit, nursing came by to administer postprandial insulin. Patient reports sleeping well last night and eating his breakfast this morning. In discussing glucose, insulin and diabetes, patient shared that his eyesight has declined in the past few years, particularly since his cancer diagnosis. Discussed how lung sounds indicate he would benefit from light walking. Patient reports understanding. Wonders about going home -- heard from son he would be d/c or Mon this week. When Inpatient team visited this afternoon, we were assisted by speech and hearing clinic director Sandi #[id number]. Patient reported feeling overall weakness, but nothing hurting. He reports he would feel better if he was at home, and asked if he could be discharged tomorrow. Review of Systems Review of Systems: See above for pertinent positives & negatives. A total of 10 systems reviewed and were otherwise negative. Physical Exam Physical Exam: General: No acute distress, awake, pleasant, communicative HEENT: normocephalic, atraumatic, mucous membranes moist. PERRLA. Normal conjunctiva, anicteric sclera. Oropharynx normal. Respiratory: Breathing unlabored, no accessory muscle use, good effort. Normal respiratory effort, some rales appreciated in LLL and RLL. Cardiovascular: RRR without murmurs, gallops, or rubs. Bilateral LE 1+ pitting edema to the knees. GI: Soft abdomen with normal bowel sounds heard on auscultation. Nontender x4 quadrants Skin: Mild erythematous wound with whitish discharge at left lower quadrant of abdomen, extending inferiorly to L inguinal fold. Neuro: Alert and oriented x3. Results & Data Vital Signs (Past 12 Hours) Vital Signs Temp Pulse Pulse Resp BP Pulse Ox O2 Del Method 11/04/22 07:48 36.3 C L 60 20 169/75 H 94 Room Air 11/03/22 20:51 36.4 C L 58 L 18 149/64 H 96 Room Air
[2022-11-04] MEDS: INSULIN ASPART PER UNIT CHARGE SC SCH ×4 (09:13→21:14)
[2022-11-04] MEDS: PANTOprazole 40 MG TAB PO SCH (09:45)
[2022-11-04 11:22] LABS: HBSAG NON-REACTIVE (NON-REACTIVE); Hepatitis A Antibody IgM NON-REACTIVE (NON-REACTIVE); Hepatitis B Core Antibody IgM NON-REACTIVE (NON-REACTIVE)
--- NOTE | 2022-11-04 19:05 | Billing Data ---
Date of Service November 04, 2022 Coding Level of Care Code 93482 SUB INP/OBS CARE MIN
[2022-11-04] MEDS: LANTUS PER UNIT CHARGE SQ SCH (21:14)
[2022-11-05 06:27] LABS: Hematocrit (blood only) 22.3 % (42.0-52.0); Hemoglobin 7.8 g/dl (14.0-18.0); Immature Granulocytes # (auto) 0.05 K/uL (0.01-0.20); Immature Granulocytes % (auto) 1.2 %; Lymphocytes # (auto) 0.31 K/uL (1.2-3.4); Lymphocytes % (auto) 7.3 %; Mean Corpuscular Hemoglobin 29.4 pg (25.0-34.0); Mean Corpuscular Volume 84.2 fL (80.0-100.0); Mean Platelet Volume 11.4 fL (9.4-12.4); Neutrophils # (auto) 3.61 K/uL (1.40-6.50); Neutrophils % (auto) 84.5 %; Platelet Count 114 K/uL (130-400); RDW Coefficient of Variation 15.1 % (11.5-14.5); RDW Standard Deviation 46.5 fL (36.4-46.3); Red Blood Count 2.65 M/uL (4.70-6.10); White Blood Count 4.27 K/ul (4.8-10.8)
[2022-11-05 06:30] LABS: BUN Creatinine Ratio 43.5 (10-20); Calcium 8.4 mg/dl (8.5-10.1); Creatinine Clr Calc Pharmacy 73.8 ml/min; Est GFR (Non-African American) 81.1 ml/min; Potassium 4.8 mmol/L (3.5-5.1)
[2022-11-05 06:32] LABS: INR 1.8 (0.9-1.1)
--- NOTE | 2022-11-05 07:16 | Hematology/Oncology Prog Note ---
Date of Service November 05, 2022 Assessment & Plan (1) Hepatotoxicity: (2) Anemia: (3) Penile cancer: Plan -Slight decline in hemoglobin to 7.8 today but LFTs remain stable (improved from admission) -Ideally, would recommend inpatient admission for atleast 1 more day to make sure hemoglobin remains stable. However, if patient insists on going home today, he can be discharged on prednisone 1mg/kg/day. He may need some insulin coverage on discharge given elevated BS. -If he insists on going home today,I will arrange for outpatient labs on Monday. May have to get Liver biopsy/ start him on cellcept outpatient if LFTs remain significantly elevated over the next 1 week. Please feel free to call/send a tiger text if you have any questions. Admission and Anticipated Discharge Date Admission Date: November 01, 2022 Subjective Slight decline in hemoglobin from 8.4 to 7.8. LFTs are stable. Results & Data Vital Signs (Past 12 Hours) Vital Signs Temp Pulse Resp BP Pulse Ox O2 Del Method 11/04/22 23:39 36.4 C L 68 18 170/69 H 93 Room Air
--- NOTE | 2022-11-05 07:17 | Hospitalist Progress Note ---
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 - TBili on admission: 6.3 w/ direct at 3.0.Elevated transaminases (AST 1391, ALT 1013), ALP 311 - Pending labs: Acute hepatitis panel, Parvovirus B19. - Heme following: anemia likely secondary to marrow suppression/infiltration (malignancy, bleeding, infection) vs immunotherapy effect - Continue prednisone 1 mg/kg/day, one dose daily - Will need outpatient check within a few days of d/c L inguinal wound- improving, stable - appears fungal, photo available in chart - appreciate WOCN recommendations and care T2DM - Last hemoglobin in November of last year shows A1c of 7.4. Review of PCP notes shows patient has declined further repeat testing since then and does not take medication. - Continue SSI with basal coverage, ACHS checks - Continue patient and family education re: diabetes -- may benefit from metf ormin on d/c - Will consider outpatient coverage with high-dose steroids. 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 TBili hovering between 6-7. - INR and elevated bilirubin concerning, but situation appears to have plateaued - While improving, if LFTs remain unchanged/minimally improved over the next week, will need to consider CellCept and possible liver biopsy - Continue steroids, as above Lower extremity edema- monitoring, stable - likely venous stasis - Continue SCDs nightly Chronic conditions -Hearing impairment: Patient is deaf in L ear, uses hearing aid in R ear. Please stand/sit at patient's R side when asking any questions/sharing information. -CAD(s/p stent placed 2017),HTN: Patient has refused statin for elevated cholesterol; no longer on metoprolol due to bradycardia. BP appears reasonably well controlled this time. Monitor. -BPH: Patient denies urinary retention, or urinary frequency, or incomplete voiding. Continue home Azo. 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 Not currently receiving radiation therapy. Code:Full code Dispo:Med-Surg FEN/GI:Carb consistent DVT Prophylaxis:SCDs. No chemoprophylaxis due to anemia, recent transfusion, concern for occult bleeding. PT/OT:No Consults:Hematology (2) Coronary artery disease: (3) Benign localized hyperplasia of prostate without urinary obstruction: (4) Type 2 diabetes mellitus: (5) Penile cancer: (6) Elevated transaminase level: Admission and Anticipated Discharge Date Admission Date: November 01, 2022 Supervising Physician Co-Signing Physician Notes I personally examined the patient and verified all cox points of history and exam, discussed case, and agree with decision making with Dr. Maddox Sitting in the chair sleeping. Already discussed situation with Dr. Cartwright and Dr. Maddox. Allowed patient to sleep. CBC, CMP reviewed. Resting comfortably in the chair, vitals noted. No distress. Breathing unlabored no accessory muscle use good effort. Skin without rashes or pallor, icterus stable. No lateralizing neurodeficits. Anemiaoverall stable since starting on steroids, but shift in hemoglobin today, coupled with mild reduction in plateletsdefinitely need to follow into tomorrow. This may all simply be "lab wobble" but definitely want a make sure its not a trend Transaminitislevel of elevation certainly consistent with drug-induced liver injury. On methylprednisolone. LFTs continue to slowly trend down, INR, bilirubin have plateaued. Appreciate/agree with oncology plan. Otherwise as above Subjective NAEO. Minimal groin pain. No lightheadedness/dizziness. No SOB. Medical interpretation services utilized for the visit. Review of Systems Review of Systems: as per HPI Physical Exam Physical Exam: General: 81-year old male who is alert, oriented, and is in NAD.. HEENT: NCAT. - Eyes - Sclera are with mild icterus - Mouth - MMM - Neck - supple, no appreciable JVD Cardiac: Normal rate and regular rhythm; S1 and S2 present with no obvious murmur detected Pulmonary: Good respiratory effort with symmetric expansion of the chest. No use of accessory muscles. Lungs were CTAB Abdominal: Normoactive bowel sounds. Abdomen was soft, nondistended, and non- tender to palpation. Bandage c/d/i Extremities: Upper and lower extremities are warm and well perfused. No appreciable peripheral edema in the lower extremities bilaterally Results & Data Results & Data Vital Signs (Past 12 Hours) Vital Signs Temp Pulse Resp BP Pulse Ox O2 Del Method 11/04/22 23:39 36.4 C L 68 18 170/69 H 93 Room Air Resident Activity Tracking Resident Involvement: Resident Care Provided Care Provided: Adult Hospital Medicine
[2022-11-05 07:22] LABS: Albumin Globulin Ratio 0.6 (0.9-2); Albumin Level 2.2 gm/dl (3.4-5.0); Bilirubin,Total 6.7 mg/dl (0.2-1.0); Globulin 3.4 gm/dl (2.5-4.0); Magnesium 2.1 mg/dl (1.7-2.4); Total Protein 5.6 gm/dl (6.0-8.3)
[2022-11-05 07:42] LABS: RBC Morphology Unremarkable
[2022-11-05] MEDS: INSULIN ASPART PER UNIT CHARGE SC SCH ×4 (08:59→21:02)
[2022-11-05 09:13] LABS: Parvovirus B19 Qual Source Plasma; Parvovirus B19 Qualitative Not Detected (Not Detected)
[2022-11-05] MEDS: predniSONE 50 MG TAB PO SCH (09:17)
[2022-11-05] MEDS: NYSTATIN POWDER 15GM BTL EXT SCH ×4 (09:17→21:03)
[2022-11-05] MEDS: PANTOprazole 40 MG TAB PO SCH (09:17)
--- NOTE | 2022-11-05 17:29 | Billing Data ---
Date of Service November 05, 2022 Coding Level of Care Code 26479 SUB INP/OBS CARE
[2022-11-05] MEDS: LANTUS PER UNIT CHARGE SQ SCH (21:02)
[2022-11-06 06:21] LABS: Calcium 8.6 mg/dl (8.5-10.1); Creatinine Clr Calc Pharmacy 84.8 ml/min; Est GFR (African American) 99.6 ml/min; Est GFR (Non-African American) 85.9 ml/min; Potassium 4.5 mmol/L (3.5-5.1)
[2022-11-06 06:36] LABS: Hematocrit (blood only) 22.6 % (42.0-52.0); Hemoglobin 8.1 g/dl (14.0-18.0); Immature Granulocytes # (auto) 0.04 K/uL (0.01-0.20); Immature Granulocytes % (auto) 0.9 %; Lymphocytes # (auto) 0.29 K/uL (1.2-3.4); Lymphocytes % (auto) 6.5 %; Mean Corpuscular Hemoglobin 30.1 pg (25.0-34.0); Mean Corpuscular Hgb Conc 35.8 g/dL (32.0-36.0); Mean Platelet Volume 11.2 fL (9.4-12.4); Monocytes # (auto) 0.25 K/uL (0.11-0.59); Monocytes % (auto) 5.6 %; Neutrophils # (auto) 3.91 K/uL (1.40-6.50); Platelet Count 106 K/uL (130-400); RDW Coefficient of Variation 15.3 % (11.5-14.5); RDW Standard Deviation 46.8 fL (36.4-46.3); Red Blood Count 2.69 M/uL (4.70-6.10); White Blood Count 4.49 K/ul (4.8-10.8)
[2022-11-06 06:44] LABS: Albumin Globulin Ratio 0.6 (0.9-2); Albumin Level 2.2 gm/dl (3.4-5.0); Bilirubin,Total 7.6 mg/dl (0.2-1.0); Globulin 3.5 gm/dl (2.5-4.0); Magnesium 2.1 mg/dl (1.7-2.4); Phosphorus 4.1 mg/dl (2.5-4.9); Total Protein 5.7 gm/dl (6.0-8.3)
[2022-11-06] MEDS: predniSONE 50 MG TAB PO SCH (08:08)
[2022-11-06] MEDS: NYSTATIN POWDER 15GM BTL EXT SCH (08:08)
[2022-11-06] MEDS: PANTOprazole 40 MG TAB PO SCH (08:08)
[2022-11-06] MEDS: INSULIN ASPART PER UNIT CHARGE SC SCH ×2 (08:36→12:37)
--- NOTE | 2022-11-06 09:34 | Discharge Summary ---
Date of Service November 06, 2022 Admission HPI Per Admitting Provider Ty Milton is an 81 year old male who presents as a direct admission from home on advice of his bulb sorter after lab work earlier today showed worsening hemolytic anemia with Hgb 6.3. Patient is [place] speaking and history taken patient using clinical outcomes manager and from son at bedside who the patient independently gave person to translate. He reports just feeling weak but no chest pain, shortness of breath or dizziness. No hemoptysis, hematemesis, hematuria, melena or bright red blood in stool. I discussed the case with Dr Cartwright earlier in the day and diagnosis of hemolytic anemia already made with initial improvement with prednisone but now getting worse as prednisone was tapered. Requesting Solu-Medrol 1mg/kg daily and 2 units of packed RBCs. Will repeat hemoglobin following this and discuss further transfusions in the morning if necessary. Admission Exam Per Admitting Provider Constitutional: WD/WN, vitals as above Eyes: + anicteric sclerae; normal pupil size Respiratory: normal respiratory effort, lungs clear to auscultation E Cardiovascular: RRR, no murmur, no edema Gastrointestinal (Abdomen): normal bowel sounds, soft, nontender, no hepatosplenomegaly Musculoskeletal: no cyanosis or clubbing, extremities motor strength 5/5 Skin: no rashes, warm and dry Neurologic:I moves all extremities and awake; not confused Principal Diagnosis pancytopenia DILI / acute liver injury Discharge Data Allergies Allergy/AdvReac Type Severity Reaction Status Date / Time No Known Drug Allergies Allergy Unknown none Verified 10/18/22 09:49 Consultations 11/02/22 03:59 Consult Hematology Routine -- excerpted 11/[address] Cartwright: "-Slight decline in hemoglobin to 7.8 today but LFTs remain stable (improved from admission) -Ideally, would recommend inpatient admission for atleast 1 more day to make sure hemoglobin remains stable. However, if patient insists on going home today, he can be discharged on prednisone 1mg/kg/day. He may need some insulin coverage on discharge given elevated BS. -If he insists on going home today,I will arrange for outpatient labs on Monday. May have to get Liver biopsy/ start him on cellcept outpatient if LFTs remain significantly elevated over the next 1 week. Please feel free to call/send a tiger text if you have any questions." Ordered Studies 11/02/22 08:01 CT abd pelvis oral and IV con Routine CT chest diagnostic w con Routine IMPRESSION: 1. There has been positive response to treatment when compared to recent prior examination. Penile lesions described previously appear necrotic with no significant enhancement, and bilateral inguinal lymphadenopathy has also decrea sed in size, attenuation, and enhancement. 2. There is no evidence of progressive metastatic disease in the chest, abdomen, or pelvis. 3. Cardiomegaly and small pleural effusions. These are new from previous. 4. The liver is cirrhotic in morphology and heterogeneous in attenuation. 5. There is a small volume of abdominopelvic ascites which is new from previous. 6. No bowel obstruction. 7. There is no airspace consolidation typical for pneumonia. 8. Prostatomegaly. 9. Additional findings as above. 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 - TBili on admission: 6.3 w/ direct at 3.0.Elevated transaminases (AST 1391, ALT 1013), ALP 311 - On discharge TBili 7.6 / AST 745 / ALT 995 / ALP 265 / Album 2.2 / Cr 0.7 / Na 137 - Acute hepatitis panel, Parvovirus B19 NEGATIVE - Heme following: anemia likely secondary to marrow suppression/infiltration (malignancy, bleeding, infection) possibly related to immunotherapy - Continue prednisone 1 mg/kg/day at 100mg daily until otherwise directed by H/O -- consider PJP prophylaxis w/ TMP-SMX if needed for >1 mo total - Will need outpatient check within a few days of d/c L inguinal wound- improving, stable - appears fungal, photo available in chart. improved PTD. wound care nurse assisted while here T2DM - Last hemoglobin in November of last year shows A1c of 7.4. Held from checking given possible c/f hemolytic anemia and false results. - Review of PCP notes while here showed that pt had declined further repeat testing since then and does not take medication. - Received glargine 20U HS and ~20-30 U of aspart while here - At discharge, will initiate insulin glargine 30U qAM. Should consider adding metformin, too. Will require very close PCP f/u. 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 TBili hovering between 6-7. - INR and elevated bilirubin concerning, but situation appears to have plateaued -While improving, if LFTs remain unchanged/minimally improved over the next week, will need to consider CellCept and possible liver biopsy - Continue steroids, as above Lower extremity edema- monitoring, stable - likely venous stasis - Continue SCDs nightly Chronic conditions -Hearing impairment: Patient is deaf in L ear, uses hearing aid in R ear. Please stand/sit at patient's R side when asking any questions/sharing information. -CAD(s/p stent placed 2016),HTN: Patient has refused statin for elevated cholesterol; no longer on metoprolol due to bradycardia. BP appears reasonably well controlled this time. Monitor. -BPH: Patient denies urinary retention, or urinary frequency, or incomplete voiding. Continue home Azo. 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 Not currently receiving radiation therapy. Code:Full code (2) Coronary artery disease: (3) Benign localized hyperplasia of prostate without urinary obstruction: (4) Type 2 diabetes mellitus: (5) Penile cancer: (6) Elevated transaminase level: Total Time Total Time Spent Total Time Spent (In Minutes): <30 Discharge Plan Discharge Items Patient Disposition: Home - Self-Care Reason For Visit: ANEMIA Discharge Diagnosis: anemia drug induced liver injury Activity: Per Instructions section Non-emergency contact: Primary Care Provider and Oncologist Call non-emergency contact if: your symptoms worsen and your temperature is above 101 Follow-up/Referrals: Mandi Davis MD [Primary Care Provider] - Kaykay Cartwright MD [Physician] - Diet: Regular Ambulatory Orders: Complete Blood Count with Diff (Routine) Timeframe: 3 Days Location: Determined by Patient Ordered By: Foster Maddox Comprehensive Metabolic Panel (Routine) Timeframe: 3 Days Location: Determined by Patient Ordered By: Foster Maddox Addtl Attending Provider Instructions: You were seen in [facility] for evaluation of low blood counts. During your stay here, you underwent extensive monitoring to determine the cause of your low blood counts. You are also noted to have liver dysfunction on your labs. Thankfully, both issues stabilize prior to dischargebut will require very close follow-up in the outpatient setting. Please continue taking prednisone 100 mg every morning. In addition, please take pantoprazole 40 mg dailyyou are taking this because prednisone can thin the lining of the stomach and cause ulcers/reflux, and this medication helps prevent that. Steroids cause blood sugars to increase. The major concern with blood sugars being high in the short-term is dehydration. It will be critical you remain hydrated -- aim for ~2.5-3+ liters of fluid each day. Also initiate insulin glargine 30U once daily in the morning. Please check your blood sugars first thing in the morning when you wake up and record the values in a journal for your family doctor. If any of your values are <80 AND/OR if you have low blood sugar symptoms (lightheadedness, sweatiness, nausea, headache), please eat something sugary immediately (like a candy bar). Low blood sugar can be dangerous if not treated. If your values are persistently low (<90), please call your PCP for advice and hold from administering the insulin. Go the ER for any severe symptoms. Please continue the prednisone and pantoprazole indefinitely until instructed otherwise by Dr. Cartwright. Please follow-up with Dr. Cartwright and your PCP within the next 1 to 2 weeks to review this visit. Please get lab work done within the next 3 to 5 days to ensure your blood counts and liver numbers are stable. As we discussed, if your liver numbers continue to be elevated, you may require initiation of a specific medication and possibly a liver biopsy. Pending Studies at Discharge: No Stand-Alone Forms: My [facility], Smoking Cessation Medications and DC Order Prescriptions: New prednisone 50 mg Tablet 100 mg PO DAILY 30 Days Qty: 60 2RF pantoprazole 40 mg Tablet,Delayed Release (Dr/Ec) 40 mg PO QAM 30 Days Qty: 30 2RF insulin glargine 100 unit/mL solution 30 unit subcut QAM Qty: 10 4RF Rx Instructions: Take 30 units each morning while on prednisone. Take your blood sugars daily. If your blood sugars are persistently below 90, please call your family doctor for advice and HOLD on administering insulin. Continued phenazopyridine [Azo Urinary Pain Relief] 95 mg tablet 95 mg PO TID PRN (Reason: Pain) loperamide 2 mg capsule 2 mg PO Q6H PRN (Reason: Diarrhea) tramadol 50 mg tablet 50 mg PO Q8H PRN (Reason: pain) Qty: 60 0RF silver sulfadiazine [Silvadene] 1 % cream 1 applic topical BID Qty: 85 2RF Rx Instructions: apply a 1.5 mm thickness clotrimazole-betamethasone 1-0.05 % cream 1 applic topical .qhs Qty: 45 11RF Rx Instructions: Apply small/pea-sized amount topically before bed timolol maleate [Timoptic-XE] 0.5 % Gel Forming Solution 1 drp OPB DAILY Discharge Orders: Discharge Order (Routine); Ordered 11/06/22 Ordered By: Foster Ledezma/Other Patient Handouts: Hypoglycemia (Low Blood Sugar), Insulin How To Use Where Inject Admission Data Admit Date/Time: 11/01/22 18:08 Attending Provider: Foster Liao Admit Provider: Gonsalo Medina Primary Care Provider: Mandi Davis V. Other Providers: Kaykay Cartwright ; Gonsalo Medina Other Interventions: Discharge Summary Assessment (RN) Last Done: 11/06/22 11:45 Supervising Physician Co-Signing Physician Notes I personally examined the patient and verified all cox points of history and exam, discussed case, and agree with decision making with Dr. Maddox Utilizing medical translatorpatient is feeling good and would like to go home. Outlined steroids, outlined stability rather than true improvement in his labsi.e. his situation is still very much a "work in progress" requiring close hematology/oncology follow-up and outpatient labs. Discussed utilizing insulin while he is on the steroids to prevent hyperglycemic dehydration or other acute complications. CBC, CMP reviewed. vitals noted. Awake and alert, pleasant no distress. Breathing unlabored no accessory muscle use good effort. Skin without rashes or pallor, icterus stable. No lateralizing neurodeficits. Anemiaoverall stable since starting on steroids, and following yesterday and today shows stability. Suspect marrow suppressionimmune mediatedcontinue prednisone Transaminitislevel of elevation certainly consistent with drug-induced liver injury. On methylprednisolone. LFTs continue to slowly trend down, although today's levels were more stable than improving; INR, bilirubin have plateaued overall. Appreciate/agree with oncology plan. Safe/stable for home, very close outpatient oncology follow-up with serial CBC/CMP, continue 100 mg of prednisone Type 2 diabetesLantus while on prednisone, hopefully will not need to add basal bolus. Otherwise as above
[2022-11-06 10:19] LABS: INR 1.8 (0.9-1.1); Prothrombin Time 18.7 Seconds (9.0-12.0)
--- NOTE | 2022-11-06 13:49 | Billing Data ---
Date of Service November 06, 2022 Coding Level of Care Code 88941 IN/OBS DISCH 30 MIN/LESS
== END 2022-11-06 13:16 | disposition home or self-care (01) | DRG 810 ==
LOC: SUATTDRO 18:08 → 3E 18:08